=== PATIENT | male | born 1935 | race Caucasian/White ===

== ENCOUNTER 2018-12-16 20:35 | Inpatient (IN) | payer MEDICARE ==
[2018-12-16] MEDS ORDERED: NS 0.9% 1000 ML** 1,000 ML IV.FLUID IV ONE (20:47)
--- NOTE | 2018-12-16 20:49 | ED ---
Sepsis HPI - HPI Summary HPI Summary: 83 yo male presents, accompanied by and son, with 2-3 days of progressive weakness and fatigue. provides the majority of the history. She tells me that pt had a nuclear stress test on 12/13 and felt fine with this. On 12/14 he seemed more tired than usual and slept a lot. Since that time has seemed more confused, fatigued, and has a decreased appetite. Last thing to eat was about 1 hour ago and was a half bowl of soup. states that pt seems "slower" and is "shuffling" when he walks. Glucose this morning was 130s per . Pt denies any pain, headache, dizziness, SOB, chest pain, abdominal pain, n/v/d/c, dysuria , back pain, numbness, tingling. - History of Current Complaint Chief Complaint: EDWeakness Stated Complaint: WEAKNESS CONFUSED Hx Obtained From: Patient, Family/Farrowing Worker Current Severity: None Pain Intensity: 0 - Allergy/Home Medications Allergies/Adverse Reactions: Allergies Allergy/AdvReac Type Severity Reaction Status Date / Time primidone Allergy Unknown Verified 12/16/18 21:25 Reaction Details Home Medications: Home Medications Aspirin [Aspirin Childrens 81 MG] 81 mg PO DAILY 12/16/18 [History Confirmed 11/24] Carvedilol 1 tab PO BID 12/16/18 [History Confirmed 12/16/18] Furosemide 20 mg PO DAILY 12/16/18 [History Confirmed 12/16/18] Toujeo Solostar Pen (NF) 15 units SUBCUT QAM 12/16/18 [History Confirmed ] Fluticasone-Salmeterol 250-50* [Advair Diskus 250-50*] 1 puff INH DAILY [History Confirmed 12/17/18] buPROPion TAB* [Wellbutrin TAB*] 1 tab PO BID 12/17/18 [History Confirmed ] PMH/Surg Hx/FS Hx/Imm Hx Endocrine/Hematology History: Reports: Hx Diabetes Cardiovascular History: Reports: Hx Angina, Hx Hypertension Respiratory History: Reports: Hx Chronic Obstructive Pulmonary Disease (COPD) GI History: Reports: Hx Gastroesophageal Reflux Disease Denies: Hx Gastrointestinal Bleed, Hx Jaundice, Hx Obstructive Bowel History: Reports: Hx Kidney Infection Neurological History: Denies: Hx CVA, Hx Seizures, Hx Transient Ischemic Attacks (TIA) - Surgical History Surgical History: Yes Surgery Procedure, Year, and Place: APPENDECTOMY "YEARS AGO" PER PT Hx Anesthesia Reactions: No Infectious Disease History: No Infectious Disease History: Denies: Traveled Outside the [place] in Last 30 Days - Family History Known Family History: Positive: Unknown - Social History Occupation: Retired Lives: With Family Substance Use Type: Reports: None Smoking Status (MU): Former Smoker Review of Systems Positive: Fatigue, Other - Decreased appetite Eyes: Negative ENT: Negative Cardiovascular: Negative Respiratory: Negative Gastrointestinal: Negative Genitourinary: Negative Musculoskeletal: Negative Skin: Negative Neurological: Negative Psychological: Normal All Other Systems Reviewed And Are Negative: No Physical Exam - Summary Physical Exam Summary: GENERAL: NAD. SKIN: No rashes, sores, ulcers, masses, lesions. HEENT: Head: AT/NC. Eyes: PERRLA. EOM intact. Conjunctiva clear without inflammation or discharge. Ears: Hearing grossly normal. TMs intact, no bulging, erythema, or edema. Nose: Nasal mucosa pink and moist. NTTP maxillary and frontal sinus. Throat: Posterior oropharynx without exudates, erythema, or tonsillar enlargement. Uvula midline. NECK: Supple. Nontender. FROM CHEST: CTAB. No wheezing. No accessory muscle use. Breathing comfortably and in no distress. CV: RRR. Pulses intact. Brisk cap refill. ABDOMEN: Soft. NTTP. Bowel sounds present MSK: FROM in B/L UEs and LEs with symmetric strength. NEURO: A&Ox3. 3 word recall, remote, recent memory, ability to follow 2-step directions, and attention intact. CN: II: Peripheral esquivel intact. Vision normal. III, IV, : EOMI. No nystagmus. PERRLA. V: Sensations intact and symmetric. Opens mouth and clenches teeth. VII: No facial asymmetry. Forehead wrinkles. Grins, shuts eyes, frowns, puffs cheeks. VIII: Hearing intact to finger rub. IX, X: Swallows and coughs. Uvula midline. XI: Shrugs shoulders. Turns head against resistance. XII: No tongue deviation [id number]-gb-[id number] are intact. Normal speech. No facial drooping. PSYCH: Age appropriate behavior. GCS 15 Triage Information Reviewed: Yes Vital Signs On Initial Exam: Initial Vitals Temp Pulse Resp BP Pulse Ox 101 F 110 16 120/87 92 12/16/18 20:41 12/16/18 20:41 12/16/18 20:41 12/16/18 20:41 12/16/18 20:41 Vital Signs Reviewed: Yes Procedures - Sedation Patient Received Moderate/Deep Sedation with Procedure: No Diagnostics - Vital Signs Vital Signs Temp Pulse Resp BP Pulse Ox 12/16/18 20:41 101 F 110 16 120/87 92 - Laboratory Lab Results: Laboratory Tests 12/16/18 12/16/18 12/16/18 20:53 21:10 21:10 WBC 11.2 H RBC 4.72 Hgb 13.4 L Hct 41 L MCV 86 MCH 28 MCHC 33 RDW 14 Plt Count 236 MPV 9.7 Neut % (Auto) 84.5 Lymph % (Auto) 4.6 Schleicher % (Auto) 10.2 Eos % (Auto) 0.4 Baso % (Auto) 0.3 Absolute Neuts (auto) 9.5 H Absolute Lymphs (auto) 0.5 L Absolute Monos (auto) 1.1 H Absolute Eos (auto) 0.0 Absolute Basos (auto) 0.0 Absolute Nucleated RBC 0.0 Nucleated RBC % 0.0 INR (Anticoag Therapy) 1.09 APTT 29.8 Sodium Potassium Chloride Carbon Dioxide Anion Gap BUN Creatinine Est GFR ( Amer) Est GFR (Non-Af Amer) BUN/Creatinine Ratio Glucose POC Glucose (mg/dL) 296 H Lactic Acid Calcium Total Bilirubin AST ALT Alkaline Phosphatase Troponin I C-Reactive Protein B-Natriuretic Peptide Total Protein Albumin Globulin Albumin/Globulin Ratio Influenza A (Rapid) Influenza B (Rapid) 12/16/18 12/16/18 12/16/18 21:10 21:10 21:10 WBC RBC Hgb Hct MCV MCH MCHC RDW Plt Count MPV Neut % (Auto) Lymph % (Auto) Schleicher % (Auto) Eos % (Auto) Baso % (Auto) Absolute Neuts (auto) Absolute Lymphs (auto) Absolute Monos (auto) Absolute Eos (auto) Absolute Basos (auto) Absolute Nucleated RBC Nucleated RBC % INR (Anticoag Therapy) APTT Sodium 131 L Potassium 4.6 Chloride 96 L Carbon Dioxide 27 Anion Gap 8 BUN 21 Creatinine 1.49 H Est GFR ( Amer) 54.2 Est GFR (Non-Af Amer) 44.8 BUN/Creatinine Ratio 14.1 Glucose 260 H POC Glucose (mg/dL) Lactic Acid 1.4 Calcium 9.4 Total Bilirubin 0.90 AST 14 ALT 14 Alkaline Phosphatase 81 Troponin I 0.01 C-Reactive Protein 127.19 H B-Natriuretic Peptide 60 Total Protein 7.4 Albumin 3.9 Globulin 3.5 Albumin/Globulin Ratio 1.1 Influenza A (Rapid) Influenza B (Rapid) 12/16/18 21:13 WBC RBC Hgb Hct MCV MCH MCHC RDW Plt Count MPV Neut % (Auto) Lymph % (Auto) Schleicher % (Auto) Eos % (Auto) Baso % (Auto) Absolute Neuts (auto) Absolute Lymphs (auto) Absolute Monos (auto) Absolute Eos (auto) Absolute Basos (auto) Absolute Nucleated RBC Nucleated RBC % INR (Anticoag Therapy) APTT Sodium Potassium Chloride Carbon Dioxide Anion Gap BUN Creatinine Est GFR ( Amer) Est GFR (Non-Af Amer) BUN/Creatinine Ratio Glucose POC Glucose (mg/dL) Lactic Acid Calcium Total Bilirubin AST ALT Alkaline Phosphatase Troponin I C-Reactive Protein B-Natriuretic Peptide Total Protein Albumin Globulin Albumin/Globulin Ratio Influenza A (Rapid) Negative Influenza B (Rapid) Negative Result Diagrams: 12/17/18 05:54 12/17/18 05:54 Lab Statement: Any lab studies that have been ordered have been reviewed, and results considered in the medical decision making process. - Radiology CXR Radiology Interpretation Completed By: Radiologist Summary of Radiographic Findings: IMPRESSION: Peripheral infiltrate located in the right upper lung. This may represent a pneumonia. No associated pleural effusion. - CT Brain CT Interpretation Completed By: Radiologist Summary of CT Findings: FINDINGS: Limitations: Streak artifact obscuring portions of the posterior fossa and middle cranial fossa. Brain: No acute intracranial hemorrhage. No intracranial mass or mass effect. 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 The brainstem and cerebellum are not remarkable. Ventricles: No ventriculomegaly. Bones/joints : Unremarkable. No acute fracture. Sinuses: Visualized sinuses are unremarkable. No fluid levels. Mastoid air cells: Visualized mastoid air cells are well aerated. Soft tissues: Unremarkable. IMPRESSION: No acute intracranial findings. - EKG 1 EKG Comparison: Other Summary of EKG Findings: Sinus tachycardia 111bpm. RBBB and LAFB. No STEMI as read by Dr. Larios Course/Dx - Course Course Of Treatment: Upon initial eval - pt does meet SIRS criteria for fever and elevated HR. NS bolus was started according to protocol. CXR revealed PNA. Zosyn and Azithromycin started. Labs reveal mild dehydration, elevated glucose, and slight leukocytosis. Given pt's hx of Urosepsis a few years ago, meeting of SIRS criteria today and remaining tachycardic despite fluids, and with PNA on CXR - discussed admission and pt and are agreeable to this. Discussed with Dr. Estrada hospitalist who agrees to admit the pt. Discussed with Dr. Larios and he agrees with plan. - Differential Dx/Clinical Impression Provider Diagnosis: PNA (pneumonia), SIRS (systemic inflammatory response syndrome) Discharge ED - Sign-Out/Discharge Documenting (check all that apply): Patient Departure - Discharge Plan Condition: Stable Disposition: ADMITTED TO [facility] - Billing Disposition and Condition Condition: STABLE Disposition: Admitted to [facility]
[2018-12-16 21:36] LABS: ABS Lymphocytes 0.5 10^3/ul (1.0-4.8); ABS Monocytes 1.1 10^3/ul (0-0.8); ABS Neutrophils 9.5 10^3/ul (1.5-7.7); Eosinophil % 0.4 %; Hematocrit 41 % (42-52); Hemoglobin 13.4 g/dL (14.0-18.0); Lymphocyte % 4.6 %; Mean Corpuscular HGB Conc 33 g/dL (31-36); Mean Corpuscular Hemoglobin 28 pg (27-31); Mean Corpuscular Volume 86 fL (80-94); Mean Platelet Volume 9.7 fL (7.4-10.4); Platelet Count 236 10^3/uL (150-450); Red Blood Count 4.72 10^6 /uL (4.18-5.48); Red Cell Distribution Width 14 % (10-15); White Blood Count 11.2 10^3/uL (3.5-10.8)
[2018-12-16 21:37] LABS: Influenza A Molecular NEGATIVE (Negative); Influenza B Molecular NEGATIVE (Negative)
[2018-12-16] MEDS ORDERED: Piperacillin/Tazobac ADVAN(*) 3.375 GM in NS 0.9% 100 ML* 100 ML IVPB ONE (21:38)
[2018-12-16 21:48] LABS: Albumin 3.9 g/dL (3.2-5.2); Albumin/Globulin Ratio 1.1 (1-3); BUN/Creatinine Ratio 14.1 (8-20); C Reactive Protein 127.19 mg/L (<8.01); Calcium 9.4 mg/dL (8.6-10.3); EGFR African American 54.2 (>60); EGFR Non-African American 44.8 (>60); Globulin 3.5 g/dL (2-4); Potassium 4.6 mmol/L (3.5-5.0); Total Bilirubin 0.9 mg/dL (0.2-1.0); Total Protein 7.4 g/dL (6.4-8.9)
[2018-12-16 21:50] LABS: Troponin I 0.01 ng/mL (<0.04)
[2018-12-16 21:52] LABS: Activated Partial Thrombo Time 29.8 seconds (26.0-38.0); INR 1.09 (0.82-1.09)
[2018-12-16] MEDS ORDERED: Azithromycin 500 mg/250 ml NS 500 MG/250 ML BAG IVPB ONE (22:12)
[2018-12-16 23:46] LABS: Urine Appearance Clear; Urine Bacteria 1+ (Absent); Urine Bilirubin Negative (Negative); Urine Blood 1+ (Negative); Urine Color Yellow; Urine Glucose 1+(50 mg/dL) (Negative); Urine Ketones Negative (Negative); Urine Nitrite Negative (Negative); Urine Protein 3+(>=500 mg/dL) (Negative); Urine Red Blood Cell 2+(6-10/hpf) (Absent); Urine Specific Gravity 1.016 (1.010-1.030); Urine Urobilinogen Negative (Negative); Urine White Blood Cell Trace(0-5/hpf) (Absent)
[2018-12-17] MEDS ORDERED: Dextrose 50% VIAL 50 ml IV PUSH PRN (00:41)
[2018-12-17] MEDS ORDERED: Zosyn per Pharmacy* NOTE FOLLOW UP SCH (01:00)
[2018-12-17] MEDS ORDERED: hydrALAZINE IV* 20 MG/ML VIAL IV SLOW PU PRN (01:03)
[2018-12-17] MEDS ORDERED: Albuterol/Ipratropium NEB.SOL* Albuterol 2.5 MG/Ipratropium 0.5 MG 3 ML INH PRN (01:05)
--- NOTE | 2018-12-17 03:04 | HP ---
HISTORY AND PHYSICAL: DATE OF ADMISSION: 12/17/18 ADMITTING PROVIDER: Kem Estrada MD. PRIMARY CARE PROVIDER: None currently. Formerly, Dr. Sosa and then Dr. Dunn. He is currently searching for a new provider. OUTPATIENT GREASE WORKER: Dr. Adrian Cool. CHIEF COMPLAINT: Fatigue, weakness, decreased appetite, cough. HISTORY OF PRESENT ILLNESS: Omar Looney is an 83-year-old male with past medical history of COPD, CHF, hypertension, and insulin-dependent diabetes mellitus type 2. For the last several weeks, he has not been quite himself with reduced appetite, though they say his weight has been stable. For the last 6 months, he has walked less than he usually did. He just had a stress test on up in [place] (2 days prior to admission). For the last 2 days, he has been weak and had even further reduction in appetite. He has been coughing with occasionally yellow production that mostly is staying in the chest. Today , he was more confused. He presented to [facility] Emergency Room and was found to be febrile to 101. His heart rate was tachycardic to 108. He had a leukocytosis of 11.2 and a chest x-ray concerning for right upper lobe infiltrate. He was started on Zosyn, a sepsis fluid bolus, and was referred to the hospitalist service for admission. CRP was 127. Blood glucose had been more elevated in the last few days and was 296 here. He denies any orthopnea or chest pain. He recently has been prescribed some new Advair about 2 to 3 weeks ago. PAST MEDICAL HISTORY: 1. CHF (unknown type or severity). 2. COPD. 3. Hypertension. 4. Insulin-dependent diabetes mellitus. 5. Hyperlipidemia. MEDICATIONS: Include: 1. Advair daily. 2. Wellbutrin 75 mg 1 tab p.o. b.i.d. 3. Metformin 850 mg p.o. b.i.d. 4. Toujeo 15 units subcutaneous q.a.m. 5. Aspirin 81 mg daily. 6. Lasix 20 mg p.o. daily. 7. Carvedilol 6.25 mg p.o. b.i.d. 8. Omeprazole 20 mg p.o. at bedtime. 9. Atorvastatin 40 mg daily. ALLERGIES: PRIMIDONE, unknown. SOCIAL HISTORY: The patient is a former smoker of 40-plus years, quit more than 10 years ago, 1 pack per day. No alcohol use. Retired maintenance planner. Medical surrogate is his , Cheryl Looney. He desires to be a full code. FAMILY HISTORY: His mother of a heart attack at age 67. Father of Alzheimer's at age 90. He was in a family of 6 other siblings, most of whom very early in their younger childhood, but he had 2 adult age sisters who of COPD and a CVA respectively. REVIEW OF SYSTEMS: A complete 14-point review of systems is negative, except as per HPI. He denies any headaches, neck stiffness, abdominal pain, diarrhea, or constipation. He is usually instructed to take his blood pressures in the right arm only. PHYSICAL EXAMINATION GENERAL APPEARANCE: In no acute distress. VITAL SIGNS: Temperature 101, heart rate 110, satting 92% on room air, respiratory rate between 16 and 35, blood pressure 120/87. HEENT: Normocephalic, atraumatic. Pupils equal, round, and reactive to light. Extraocular motions are intact. No scleral icterus. LUNGS: With some rhonchi bilaterally. No wheezing or rales. CARDIOVASCULAR: Regular rate and rhythm. No murmurs, rubs, or gallops. ABDOMEN: Soft, nontender, nondistended. EXTREMITIES: Warm and well perfused. No peripheral edema. NEURO: Cranial nerves II through XII grossly intact. Moving all extremities. DIAGNOSTIC STUDIES/LAB DATA: Labs: White count 11.2, hemoglobin 13.4, hematocrit 41, platelets 236. INR 1.09. Sodium 131, potassium 4.6, chloride 96 , carbon dioxide 27, creatinine 1.49, glucose 260. Lactic acid 1.4. Total bili 0.9. AST 14, ALT 14, alk phos 81. Troponin 0.01, CRP 127, BNP 60. Albumin 3.9. Influenza A and B negative. Imaging: CT brain demonstrated no acute intracranial findings. Chest x-ray, impression: Peripheral infiltrate located in the right upper lung. This may represent a pneumonia, no associated pleural effusion. His EKG demonstrated sinus tachycardia with right bundle-branch and left anterior fascicular blocks. No ST elevations or depressions. ASSESSMENT AND PLAN: Omar Looney is an 83-year-old male with past medical history of congestive heart failure (unknown type or severity), chronic obstructive pulmonary disease, hypertension, and insulin-dependent diabetes mellitus presenting with: 1. A few days of weakness, cough, confusion, reduced appetite and now with fever, tachycardia, and sepsis secondary to right upper lobe pneumonia. He has been started on Zosyn and azithromycin and given a sepsis fluid bolus. We will continue the Zosyn. We will get a MRSA nares sputum culture. Follow up the blood cultures. Get Streptococcus pneumoniae and Legionella urine antigen tests. Order a urinalysis. 2. He is actually hypertensive here, especially when checking his right forearm. Continue his Coreg 6.25 mg p.o. b.i.d., hydralazine p.r.n., Lipitor, and aspirin. 3. COPD (not in acute exacerbation): Continue his home Advair. Add on DuoNebs p.r.n. 4. I will put him on DVT prophylaxis with heparin 5000 t.i.d. 5. Continue the heart-healthy diet. He will get physical therapy. He has been admitted to inpatient status for sepsis. 6. His medical surrogate is his , Cheryl Looney. He is a full code. [id number]/CPS #: [id number] MTDD
[2018-12-17] MEDS: Piperacillin/Tazobac ADVAN(*) 3.375 GM in NS 0.9% 100 ML* 100 ML IVPB SCH ×2 (03:16→10:42)
[2018-12-17 06:05] LABS: ABS Eosinophils 0.1 10^3/ul (0-0.6); ABS Lymphocytes 0.9 10^3/ul (1.0-4.8); ABS Monocytes 1.2 10^3/ul (0-0.8); ABS Neutrophils 5.4 10^3/ul (1.5-7.7); Hematocrit 33 % (42-52); Mean Corpuscular HGB Conc 34 g/dL (31-36); Mean Corpuscular Hemoglobin 29 pg (27-31); Mean Corpuscular Volume 85 fL (80-94); Nucleated Red Blood Cells % 0.1; Platelet Count 185 10^3/uL (150-450); Red Blood Count 3.85 10^6 /uL (4.18-5.48); Red Cell Distribution Width 13 % (10-15); White Blood Count 7.5 10^3/uL (3.5-10.8)
[2018-12-17] MEDS: Heparin VIAL(*) 5000 UNITS/ML VIAL (FIVE THOUSAND) SUBCUT SCH ×3 (06:11→21:01)
[2018-12-17 06:35] LABS: BUN/Creatinine Ratio 12.9 (8-20); Calcium 8.2 mg/dL (8.6-10.3); EGFR African American 58.3 (>60); EGFR Non-African American 48.2 (>60); Potassium 4.2 mmol/L (3.5-5.0)
[2018-12-17] MEDS: Mometasone/Formoter 200/5 MDI INH SCH ×2 (08:03→20:03)
[2018-12-17] MEDS: Insulin LISPRO* 1 UNITS UNIT SUBCUT SCH ×4 (09:20→21:02)
[2018-12-17] MEDS: Insulin GLARGINE(*) 1 UNITS UNIT SUBCUT SCH (09:21)
[2018-12-17] MEDS: Aspirin 81 mg CHEW TAB* 81 MG TAB.CHEW PO SCH (09:21)
[2018-12-17] MEDS: Carvedilol TAB* 6.25 MG PO SCH ×2 (09:21→21:01)
[2018-12-17] MEDS: buPROPion TAB* 75 MG PO SCH ×2 (09:22→21:01)
[2018-12-17] MEDS ORDERED: Polyethylene Glycol 3350* 17 GM PACKET PO PRN (14:26)
[2018-12-17] MEDS: Azithromycin TAB* 250 MG PO SCH (15:07)
--- NOTE | 2018-12-17 15:49 | PN ---
Subjective Date of Service: 12/17/18 Interval History: HD 2 on 12/17 83 y/o M wiht h/o COPD,HTN, Insulin dependent DM2 presented with sub acute cough associated with SOB, confusion, loss of appetite and fatigue. Found to have sepsis with pneumonia. Complains of cough. Feeling better. Objective Active Medications: Albuterol/Ipratropium (Duoneb (Albuterol 2.5 Mg/Ipratropium 0.5 Mg)) 1 neb INH Q6H PRN PRN Reason: SOB/WHEEZING Aspirin (Aspirin 81 Mg Chew Tab*) 81 mg PO DAILY [facility] Last Admin: 12/17/18 09:21 Dose: 81 mg Atorvastatin Calcium (Lipitor*) 40 mg PO 1700 [facility] Azithromycin (Zithromax Tab*) 250 mg PO 1600 [facility] Last Admin: 12/17/18 15:07 Dose: 250 mg Bupropion HCl (Wellbutrin Tab*) 75 mg PO BID [facility] Last Admin: 12/17/18 09:22 Dose: 75 mg Carvedilol (Coreg Tab*) 6.25 mg PO BID [facility] Last Admin: 12/17/18 09:21 Dose: 6.25 mg Dextrose (Dextrose 50% Vial 50 Ml*) 25 ml IV PUSH .FOR FS < 60 - SS PRN PRN Reason: FS < 60 Heparin Sodium (Porcine) (Heparin Vial(*)) 5,000 units SUBCUT Q8HR [facility] Last Admin: 12/17/18 15:07 Dose: 5,000 units Hydralazine HCl (Apresoline Iv*) 20 mg IV SLOW PU Q2H PRN PRN Reason: HEART RATE/PULSE GREATER THAN: Ceftriaxone Sodium 1 gm/ (Sodium Chloride) 50 mls @ 100 mls/hr IVPB Q24H [facility] Insulin Glargine (Lantus(*)) 15 units SUBCUT Q24H [facility] Last Admin: 12/17/18 09:21 Dose: 15 units Insulin Human Lispro (Humalog*) 0 units SUBCUT ACHS [facility]; Protocol Last Admin: 12/17/18 13:12 Dose: 2 units Mometasone Furoate/Formoterol Fumar (Dulera 200/5 Mdi*) 2 puff INH BID [facility] Last Admin: 12/17/18 08:03 Dose: 2 puff Pantoprazole Sodium (Protonix Tab*) 40 mg PO BEDTIME LOPEZ Polyethylene Glycol/Electrolytes (Miralax*) 17 gm PO DAILY PRN PRN Reason: CONSTIPATION Last Admin: 12/17/18 15:07 Dose: 17 gm Vital Signs - 8 hr 12/17/18 12/17/18 12/17/18 08:00 08:06 08:16 Temperature 99.9 F Pulse Rate 91 86 Respiratory 17 20 14 Rate Blood Pressure 98/66 (mmHg) O2 Sat by Pulse 97 98 Oximetry 12/17/18 11:20 Temperature 98.5 F Pulse Rate 76 Respiratory 18 Rate Blood Pressure 139/70 (mmHg) O2 Sat by Pulse 98 Oximetry Oxygen Devices in Use Now: Nasal Cannula Exam: Patient is sitting on abed with no acute distress; wearing nasal canula HEENT- Normocephalic and atraumatic Lungs- Clear with no adde dsounds Heart- S1/S2 heard with no murmur ABdomen- soft, nondistended and nontender. Normal BS heard Extremities- Normal Neuro- Alert, oriented and conscious. Moving all four extremities Result Diagrams: 12/17/18 05:54 12/17/18 05:54 Additional Lab and Data: Laboratory Tests 12/16/18 12/16/18 12/16/18 20:53 21:10 21:10 WBC 11.2 H RBC 4.72 Hgb 13.4 L Hct 41 L MCV 86 MCH 28 MCHC 33 RDW 14 Plt Count 236 MPV 9.7 Neut % (Auto) 84.5 Lymph % (Auto) 4.6 Hartley % (Auto) 10.2 Eos % (Auto) 0.4 Baso % (Auto) 0.3 Absolute Neuts (auto) 9.5 H Absolute Lymphs (auto) 0.5 L Absolute Monos (auto) 1.1 H Absolute Eos (auto) 0.0 Absolute Basos (auto) 0.0 Absolute Nucleated RBC 0.0 Nucleated RBC % 0.0 INR (Anticoag Therapy) 1.09 APTT 29.8 Sodium Potassium Chloride Carbon Dioxide Anion Gap BUN Creatinine Est GFR ( Amer) Est GFR (Non-Af Amer) BUN/Creatinine Ratio Glucose POC Glucose (mg/dL) 296 H Lactic Acid Calcium Total Bilirubin AST ALT Alkaline Phosphatase Troponin I C-Reactive Protein B-Natriuretic Peptide Total Protein Albumin Globulin Albumin/Globulin Ratio Influenza A (Rapid) Influenza B (Rapid) 1112/16/18 12/16/18 21:10 21:10 21:10 WBC RBC Hgb Hct MCV MCH MCHC RDW Plt Count MPV Neut % (Auto) Lymph % (Auto) Hartley % (Auto) Eos % (Auto) Baso % (Auto) Absolute Neuts (auto) Absolute Lymphs (auto) Absolute Monos (auto) Absolute Eos (auto) Absolute Basos (auto) Absolute Nucleated RBC Nucleated RBC % INR (Anticoag Therapy) APTT Sodium 131 L Potassium 4.6 Chloride 96 L Carbon Dioxide 27 Anion Gap 8 BUN 21 Creatinine 1.49 H Est GFR ( Amer) 54.2 Est GFR (Non-Af Amer) 44.8 BUN/Creatinine Ratio 14.1 Glucose 260 H POC Glucose (mg/dL) Lactic Acid 1.4 Calcium 9.4 Total Bilirubin 0.90 AST 14 ALT 14 Alkaline Phosphatase 81 Troponin I 0.01 C-Reactive Protein 127.19 H B-Natriuretic Peptide 60 Total Protein 7.4 Albumin 3.9 Globulin 3.5 Albumin/Globulin Ratio 1.1 Influenza A (Rapid) Influenza B (Rapid) 12/16/18 21:13 WBC RBC Hgb Hct MCV MCH MCHC RDW Plt Count MPV Neut % (Auto) Lymph % (Auto) Hartley % (Auto) Eos % (Auto) Baso % (Auto) Absolute Neuts (auto) Absolute Lymphs (auto) Absolute Monos (auto) Absolute Eos (auto) Absolute Basos (auto) Absolute Nucleated RBC Nucleated RBC % INR (Anticoag Therapy) APTT Sodium Potassium Chloride Carbon Dioxide Anion Gap BUN Creatinine Est GFR ( Amer) Est GFR (Non-Af Amer) BUN/Creatinine Ratio Glucose POC Glucose (mg/dL) Lactic Acid Calcium Total Bilirubin AST ALT Alkaline Phosphatase Troponin I C-Reactive Protein B-Natriuretic Peptide Total Protein Albumin Globulin Albumin/Globulin Ratio Influenza A (Rapid) Negative Influenza B (Rapid) Negative Assess/Plan/Problems-Billing Assessment: 83 y/o M wiht h/o Insulin dependent DM, HTN, COPD presented with subacute cough associated with SOB, fatigue, confusion and loss of appetite FOund to be in sepsis with suspected pneumonia and has microscopic hematuria. On ceftriaxone and azithro - Patient Problems (1) Sepsis Current Visit: Yes Status: Acute Comment: -fever, tachycardia and tachypnea -received IVF -suspected source- lung- infiltrate on right middle lobe -urine negative for legionella and strept -On ceftriaxone and azithro(day 2 on 12/17) (2) Hypertension Current Visit: Yes Status: Acute Code(s): I10 - ESSENTIAL (PRIMARY) HYPERTENSION SNOMED Code(s): 83500013 Comment: -BP in the range of 150-178 -improving -Continue coreg adn hydralizine p.r.n (3) Hematuria Current Visit: Yes Status: Acute Code(s): R31.9 - HEMATURIA, UNSPECIFIED SNOMED Code(s): 93046013 Comment: -microscopic -no burning, increased frequency and change in color of urine -could be nephrolithiasis, interstitial cystitis, bladder tumor -We will send US of bladder and kidney -we will follow (4) Diabetes mellitus Current Visit: Yes Status: Acute Code(s): E11.9 - TYPE 2 DIABETES MELLITUS WITHOUT COMPLICATIONS SNOMED Code(s): 38785231 Comment: - On insulin glargine and sldiing scale - Hba1c is 7.8- goal is 7-8 in elderly with comorbid condition (5) COPD (chronic obstructive pulmonary disease) Current Visit: Yes Status: Acute Code(s): J44.9 - CHRONIC OBSTRUCTIVE PULMONARY DISEASE, UNSPECIFIED SNOMED Code(s): 35480521 Comment: -No evidence of acute exacerbation -Continue dulera and duoneb (6) DVT prophylaxis Current Visit: Yes Status: Acute Code(s): Z29.9 - ENCOUNTER FOR PROPHYLACTIC MEASURES, UNSPECIFIED SNOMED Code(s): 457005726 Comment: - On heparin (7) Full code status Current Visit: Yes Status: Acute Code(s): Z78.9 - OTHER SPECIFIED HEALTH STATUS SNOMED Code(s): 764244941 Status and Disposition: Inpatient Attending: Deb Franco Attestation Documenting Resident: Dwain Santos Supervising Physician: Deb Franco Attending/Supervising Physician Comment: Attending Assessment and Plan 83 PMH HF(?) COPD HTN IDDM depression who presented with sepsis thought to be 2/ 2 to pulm source. He does have microscopic hematuria as well, and only a mild infiltrate on CXR. Consider other source such as UTI, or a non infectious source for fever if pt not improving. Anticipate 2-3 days of hospitlization, will attempt to get cardiac records. Attestation: This service has been performed in part by a resident under the direction of a teaching physician.I, Deb Franco, performed the service, or was physically present during the critical, or ramon portions of the service, furnished by the resident. I participated in the management of the patient.
[2018-12-17] MEDS: cefTRIAXone(*) 1 GM in NS 0.9% 50 ML* 50 ML IVPB SCH (17:50)
[2018-12-17] MEDS: Atorvastatin* 40 MG TAB PO SCH (17:51)
[2018-12-17] MEDS: Pantoprazole TAB * 40 MG TAB PO SCH (21:01)
[2018-12-18] MEDS: Heparin VIAL(*) 5000 UNITS/ML VIAL (FIVE THOUSAND) SUBCUT SCH (06:11)
--- NOTE | 2018-12-18 06:50 | PN ---
Subjective Date of Service: 12/18/18 Interval History: HD 3 on 12/18 83 y/o M wiht h/o COPD,HTN, Insulin dependent DM2 presented with sub acute cough associated with SOB, confusion, loss of appetite and fatigue. Found to have sepsis with pneumonia. and microscopic hematuria Overnight- no acute events VS stable- requiring 1-2 L of oxygen Patient states that he is improving. Has cough-whitish color No fever, chest pain Objective Active Medications: Albuterol/Ipratropium (Duoneb (Albuterol 2.5 Mg/Ipratropium 0.5 Mg)) 1 neb INH Q6H PRN PRN Reason: SOB/WHEEZING Aspirin (Aspirin 81 Mg Chew Tab*) 81 mg PO DAILY [facility] Last Admin: 12/17/18 09:21 Dose: 81 mg Atorvastatin Calcium (Lipitor*) 40 mg PO 1700 [facility] Last Admin: 12/17/18 17:51 Dose: 40 mg Azithromycin (Zithromax Tab*) 250 mg PO 1600 [facility] Last Admin: 12/17/18 15:07 Dose: 250 mg Bupropion HCl (Wellbutrin Tab*) 75 mg PO BID [facility] Last Admin: 12/17/18 21:01 Dose: 75 mg Carvedilol (Coreg Tab*) 6.25 mg PO BID [facility] Last Admin: 12/17/18 21:01 Dose: 6.25 mg Dextrose (Dextrose 50% Vial 50 Ml*) 25 ml IV PUSH .FOR FS < 60 - SS PRN PRN Reason: FS < 60 Heparin Sodium (Porcine) (Heparin Vial(*)) 5,000 units SUBCUT Q8HR [facility] Last Admin: 12/18/18 06:11 Dose: 5,000 units Hydralazine HCl (Apresoline Iv*) 20 mg IV SLOW PU Q2H PRN PRN Reason: HEART RATE/PULSE GREATER THAN: Ceftriaxone Sodium 1 gm/ (Sodium Chloride) 50 mls @ 100 mls/hr IVPB Q24H [facility] Last Admin: 12/17/18 17:50 Dose: 100 mls/hr Insulin Glargine (Lantus(*)) 15 units SUBCUT Q24H [facility] Last Admin: 12/17/18 09:21 Dose: 15 units Insulin Human Lispro (Humalog*) 0 units SUBCUT [facility]; Protocol Last Admin: 12/17/18 21:02 Dose: 1 units Mometasone Furoate/Formoterol Fumar (Dulera 200/5 Mdi*) 2 puff INH BID [facility] Last Admin: 12/17/18 20:03 Dose: 2 puff Pantoprazole Sodium (Protonix Tab*) 40 mg PO BEDTIME [facility] Last Admin: 12/17/18 21:01 Dose: 40 mg Polyethylene Glycol/Electrolytes (Miralax*) 17 gm PO DAILY PRN PRN Reason: CONSTIPATION Last Admin: 12/17/18 15:07 Dose: 17 gm Vital Signs - 8 hr 12/17/18 12/18/18 22:54 03:10 Temperature 100.0 F 99.3 F Pulse Rate 85 87 Respiratory 18 19 Rate Blood Pressure 139/73 147/67 (mmHg) O2 Sat by Pulse 99 92 Oximetry Oxygen Devices in Use Now: Nasal Cannula Exam: Patient is sitting on abed with no acute distress HEENT- Normocephalic and atraumatic Lungs- Clear with bilateral crackles. Heart- S1/S2 heard with no murmur ABdomen- soft, nondistended and nontender. Normal BS heard Extremities- Normal Neuro- Alert, oriented and conscious. Moving all four extremities Result Diagrams: 12/18/18 08:35 12/18/18 08:35 Additional Lab and Data: Laboratory Tests 12/16/18 12/16/18 12/16/18 20:53 21:10 21:10 WBC 11.2 H RBC 4.72 Hgb 13.4 L Hct 41 L MCV 86 MCH 28 MCHC 33 RDW 14 Plt Count 236 MPV 9.7 Neut % (Auto) 84.5 Lymph % (Auto) 4.6 [place] % (Auto) 10.2 Eos % (Auto) 0.4 Baso % (Auto) 0.3 Absolute Neuts (auto) 9.5 H Absolute Lymphs (auto) 0.5 L Absolute Monos (auto) 1.1 H Absolute Eos (auto) 0.0 Absolute Basos (auto) 0.0 Absolute Nucleated RBC 0.0 Nucleated RBC % 0.0 INR (Anticoag Therapy) 1.09 APTT 29.8 Sodium Potassium Chloride Carbon Dioxide Anion Gap BUN Creatinine Est GFR ( Amer) Est GFR (Non-Af Amer) BUN/Creatinine Ratio Glucose POC Glucose (mg/dL) 296 H Lactic Acid Calcium Total Bilirubin AST ALT Alkaline Phosphatase Troponin I C-Reactive Protein B-Natriuretic Peptide Total Protein Albumin Globulin Albumin/Globulin Ratio Influenza A (Rapid) Influenza B (Rapid) 12/16/18 12/16/18 12/16/18 21:10 21:10 21:10 WBC RBC Hgb Hct MCV MCH MCHC RDW Plt Count MPV Neut % (Auto) Lymph % (Auto) [place] % (Auto) Eos % (Auto) Baso % (Auto) Absolute Neuts (auto) Absolute Lymphs (auto) Absolute Monos (auto) Absolute Eos (auto) Absolute Basos (auto) Absolute Nucleated RBC Nucleated RBC % INR (Anticoag Therapy) APTT Sodium 131 L Potassium 4.6 Chloride 96 L Carbon Dioxide 27 Anion Gap 8 BUN 21 Creatinine 1.49 H Est GFR ( Amer) 54.2 Est GFR (Non-Af Amer) 44.8 BUN/Creatinine Ratio 14.1 Glucose 260 H POC Glucose (mg/dL) Lactic Acid 1.4 Calcium 9.4 Total Bilirubin 0.90 AST 14 ALT 14 Alkaline Phosphatase 81 Troponin I 0.01 C-Reactive Protein 127.19 H B-Natriuretic Peptide 60 Total Protein 7.4 Albumin 3.9 Globulin 3.5 Albumin/Globulin Ratio 1.1 Influenza A (Rapid) Influenza B (Rapid) 12/16/18 21:13 WBC RBC Hgb Hct MCV MCH MCHC RDW Plt Count MPV Neut % (Auto) Lymph % (Auto) [place] % (Auto) Eos % (Auto) Baso % (Auto) Absolute Neuts (auto) Absolute Lymphs (auto) Absolute Monos (auto) Absolute Eos (auto) Absolute Basos (auto) Absolute Nucleated RBC Nucleated RBC % INR (Anticoag Therapy) APTT Sodium Potassium Chloride Carbon Dioxide Anion Gap BUN Creatinine Est GFR ( Amer) Est GFR (Non-Af Amer) BUN/Creatinine Ratio Glucose POC Glucose (mg/dL) Lactic Acid Calcium Total Bilirubin AST ALT Alkaline Phosphatase Troponin I C-Reactive Protein B-Natriuretic Peptide Total Protein Albumin Globulin Albumin/Globulin Ratio Influenza A (Rapid) Negative Influenza B (Rapid) Negative Assess/Plan/Problems-Billing Assessment: 83 y/o M wiht h/o Insulin dependent DM, HTN, COPD presented with subacute cough associated with SOB, fatigue, confusion and loss of appetite FOund to be in sepsis with suspected pneumonia and has microscopic hematuria. On ceftriaxone and azithro - Patient Problems (1) Sepsis Current Visit: Yes Status: Acute Comment: -resolved -source- lung- infiltrate on right middle lobe -urine negative for legionella and strept -On ceftriaxone and azithro(day 3 on 12/18) -on incentive spirometry -saturation normal at room air (2) Hypertension Current Visit: Yes Status: Acute Code(s): I10 - ESSENTIAL (PRIMARY) HYPERTENSION SNOMED Code(s): 57418064 Comment: -well-controlled -improving -Continue coreg adn hydralizine p.r.n (3) Hematuria Current Visit: Yes Status: Acute Code(s): R31.9 - HEMATURIA, UNSPECIFIED SNOMED Code(s): 12915312 Comment: -microscopic -no burning, increased frequency and change in color of urine -could be nephrolithiasis, interstitial cystitis, bladder tumor -US negative for stones and bladder pathology; showed enlarged prostrate though -ESR slightly high -can follow up as an outpatient (4) Diabetes mellitus Current Visit: Yes Status: Acute Code(s): E11.9 - TYPE 2 DIABETES MELLITUS WITHOUT COMPLICATIONS SNOMED Code(s): 61318126 Comment: - On insulin glargine and sliding scale - Hba1c is 7.8- goal is 7-8 in elderly with comorbid condition (5) COPD (chronic obstructive pulmonary disease) Current Visit: Yes Status: Acute Code(s): J44.9 - CHRONIC OBSTRUCTIVE PULMONARY DISEASE, UNSPECIFIED SNOMED Code(s): 55814848 Comment: -No evidence of acute exacerbation -Continue dulera and duoneb (6) DVT prophylaxis Current Visit: Yes Status: Acute Code(s): Z29.9 - ENCOUNTER FOR PROPHYLACTIC MEASURES, UNSPECIFIED SNOMED Code(s): 481757188 Comment: - On lovenox (7) Full code status Current Visit: Yes Status: Acute Code(s): Z78.9 - OTHER SPECIFIED HEALTH STATUS SNOMED Code(s): 843644435 Status and Disposition: Inpatient probable dc tomorrow Attending: Deb Franco Attestation Documenting Resident: Dwain Santos Supervising Physician: Deb Franco Attending/Supervising Physician Comment: Attending Assessment and Plan: 83 PMH HF(?) COPD HTN IDDM depression who presented with sepsis thought to be 2/ 2 to pulm source, also found to have microscopic hematuria Today improving sig, most likely was pulm source, CAP with sig improvement. Mild hypotension today. Agree with stepwise plan by resident Dispo: May be able to d/c in next 24-48 hours pending clinical improvement. Attestation: This service has been performed in part by a resident under the direction of a teaching physician.I, Deb Franco, performed the service, or was physically present during the critical, or ramon portions of the service, furnished by the resident. I participated in the management of the patient.
[2018-12-18] MEDS: Mometasone/Formoter 200/5 MDI INH SCH ×2 (07:52→19:27)
--- NOTE | 2018-12-18 08:30 | PN ---
<DorisEladio - Last Filed: 12/18/18 14:54> Hospitalist Progress Note Date of Service: 12/18/18 S/IE: Omar Looney is an 83 year-old male with a history of COPD, CHF, HTN, DMII who presented on 12/16/18 with SOB, confusion, loss of appetite and fatigue found to have sepsis with pneumonia and microscopic hematuria. This is hospital day 3. No significant events overnight. No pain. Has not had a BM since admission. He reports that he is feeling much better today and continues to inquire about when he could go home. Sitting in a chair eating a good breakfast. Has been ambulating with assistance. Has been on low flow oxygen at 1.5 LPM. Discussion of possible d/c in next day or two if continued improvement. O: PE: 3 Temp Pulse Resp BP Pulse Ox 99.3 F 88 18 147/67 94 12/18/18 03:10 12/18/18 07:54 12/18/18 07:54 12/18/18 03:10 12/18/18 07:54 General: Comfortably sitting in chair, not in acute distress, AAOx4, pleasantly cooperates with interview and examination. HEENT: Head is normocephalic and atraumatic. Hearing is grossly normal b/l. PERRLA. EOMI. Visual acuity grossly normal b/l. Nares patent. Oral mucosa pink and moist. Good dentition. No JVD. Trachea midline. No lymphadenopathy. Chest: Unlabored breathing with normal symmetric chest motion. Lungs clear to auscultation b/l. Regular heart rhythm. Normal S1/S2. No rubs, click, gallops. Abdomen: Soft, non-tender, non-distended. Extremities: UE and LE distal CMS intact b/l. 5/5 handgrip strength. Recent Labs: 3 12/18/18 12/18/18 12/18/18 08:35 08:35 08:36 WBC 7.4 RBC 4.01 L Hgb 11.4 L Hct 35 L MCV 86 MCH 29 MCHC 33 RDW 13 Plt Count 195 MPV 9.3 Neut % (Auto) 71.9 Lymph % (Auto) 11.5 [place] % (Auto) 12.3 Eos % (Auto) 4.0 Baso % (Auto) 0.3 Absolute Neuts (auto) 5.3 Absolute Lymphs (auto) 0.8 L Absolute Monos (auto) 0.9 H Absolute Eos (auto) 0.3 Absolute Basos (auto) 0.0 Absolute Nucleated RBC 0.0 Nucleated RBC % 0.0 ESR 54 H Sodium 137 Potassium 4.0 Chloride 102 Carbon Dioxide 26 Anion Gap 9 BUN 16 Creatinine 1.33 H Est GFR ( Amer) 61.8 Est GFR (Non-Af Amer) 51.1 BUN/Creatinine Ratio 12.0 Glucose 94 POC Glucose (mg/dL) 109 H Calcium 9.0 3 12/17/18 12/17/18 05:54 05:54 WBC 7.5 RBC 3.85 L Hgb 11.0 L Hct 33 L MCV 85 MCH 29 MCHC 34 RDW 13 Plt Count 185 MPV 9.0 Neut % (Auto) 71.3 Lymph % (Auto) 12.0 [place] % (Auto) 15.3 Eos % (Auto) 1.0 Baso % (Auto) 0.4 Absolute Neuts (auto) 5.4 Absolute Lymphs (auto) 0.9 L Absolute Monos (auto) 1.2 H Absolute Eos (auto) 0.1 Absolute Basos (auto) 0.0 Absolute Nucleated RBC 0.0 Nucleated RBC % 0.1 Sodium 137 Potassium 4.2 Chloride 104 Carbon Dioxide 28 Anion Gap 5 BUN 18 Creatinine 1.40 H Est GFR ( Amer) 58.3 Est GFR (Non-Af Amer) 48.2 BUN/Creatinine Ratio 12.9 Glucose 133 H Calcium 8.2 L Sputum Smear Results (12/18/18): 4+ Epithelial Cells 3+ Neutrophils Mixed Morphotypes, resembling Normal Maria Eugenia Sputum Culture PENDING Aerobic and Anerobic Venous Blood Cultures (12/17/18): No growth Renal and Bladder US (12/17/18): INDICATION: Hematuria. COMPARISON: Comparison is made with a prior CT of the abdomen and pelvis from December 18, 2009 and a prior renal ultrasound from January 21, 2013. TECHNIQUE: Multiple real-time images of the kidneys and urinary bladder were obtained. FINDINGS: The kidneys are normal in size shape and echogenicity. The right kidney measured 11.2 x 5.5 x 5.0 cm and the left kidney measured 10.1 x 5.5 x 5.0 cm. No significant focal renal abnormality or hydronephrosis is seen. The bladder is normal in contour. No intraluminal abnormalities are seen. No bladder wall thickening is noted. There are bilateral ureteral jets present within the urinary bladder. The prostate gland measured 3.7 x 4.0 x 4.2 cm for a total volume of 33 ml. The prevoid volume was 250 ml and a post void residual was 57 ml. IMPRESSION: ENLARGED PROSTATE GLAND, SMALL TO MODERATE POST VOID RESIDUAL. Current Medications: Albuterol/Ipratropium (Duoneb (Albuterol 2.5 Mg/Ipratropium 0.5 Mg)) 1 neb INH Q6H PRN PRN Reason: SOB/WHEEZING Aspirin (Aspirin 81 Mg Chew Tab*) 81 mg PO DAILY [facility] Last Admin: 12/18/18 08:45 Dose: 81 mg Atorvastatin Calcium (Lipitor*) 40 mg PO 1700 [facility] Last Admin: 12/17/18 17:51 Dose: 40 mg Azithromycin (Zithromax Tab*) 250 mg PO 1600 [facility] Last Admin: 12/17/18 15:07 Dose: 250 mg Bupropion HCl (Wellbutrin Tab*) 75 mg PO BID [facility] Last Admin: 12/18/18 08:45 Dose: 75 mg Carvedilol (Coreg Tab*) 6.25 mg PO BID [facility] Last Admin: 12/18/18 08:46 Dose: 6.25 mg Dextrose (Dextrose 50% Vial 50 Ml*) 25 ml IV PUSH .FOR FS < 60 - SS PRN PRN Reason: FS < 60 Enoxaparin Sodium (Lovenox(*)) 40 mg SUBCUT Q24H [facility] Last Admin: 12/18/18 13:13 Dose: 40 mg Hydralazine HCl (Apresoline Iv*) 20 mg IV SLOW PU Q2H PRN PRN Reason: HEART RATE/PULSE GREATER THAN: Ceftriaxone Sodium 1 gm/ (Sodium Chloride) 50 mls @ 100 mls/hr IVPB Q24H [facility] Last Admin: 12/17/18 17:50 Dose: 100 mls/hr Insulin Glargine (Lantus(*)) 15 units SUBCUT Q24H [facility] Last Admin: 12/18/18 08:44 Dose: 15 units Insulin Human Lispro (Humalog*) 0 units SUBCUT [facility]; Protocol Last Admin: 12/18/18 11:46 Dose: 2 units Mometasone Furoate/Formoterol Fumar (Dulera 200/5 Mdi*) 2 puff INH BID [facility] Last Admin: 12/18/18 07:52 Dose: 2 puff Pantoprazole Sodium (Protonix Tab*) 40 mg PO BEDTIME [facility] Last Admin: 12/17/18 21:01 Dose: 40 mg Polyethylene Glycol/Electrolytes (Miralax*) 17 gm PO DAILY [facility] Last Admin: 12/18/18 13:13 Dose: 17 gm Recent Orders: 12/17/18 15:45 obtain records [Records From Another Facility] .ONCE 12/17/18 16:00 Azithromycin TAB* [Zithromax TAB*] 250 mg PO 1600 12/17/18 17:00 Atorvastatin* [Lipitor*] 40 mg PO 1700 12/17/18 18:00 cefTRIAXone(*) [Rocephin(*)] 1 gm Ns 0.9% 50 ml* 50 ml IVPB Q24H 12/17/18 21:00 Pantoprazole TAB * [Protonix TAB*] 40 mg PO BEDTIME 12/17/18 Dinner Heart Healthy Diet Caffeine Okay 12/18/18 12:00 Enoxaparin(*) [Lovenox(*)] 40 mg SUBCUT Q24H 12/18/18 12:10 Incentive Spirometry Education ONCE 12/18/18 13:00 Polyethylene Glycol 3350* [Miralax*] 17 gm PO DAILY 12/19/18 06:00 BMP [Basic Metabolic Panel] [CHEM] DAILY CBC Auto Diff DAILY 12/20/18 06:00 BMP [Basic Metabolic Panel] [CHEM] DAILY CBC Auto Diff DAILY 12/21/18 06:00 BMP [Basic Metabolic Panel] [CHEM] DAILY CBC Auto Diff DAILY 12/22/18 06:00 BMP [Basic Metabolic Panel] [CHEM] DAILY A/I: 83 year-old male with a history of COPD, CHF, HTN, DMII who presented on with SOB, confusion, loss of appetite and fatigue found to have sepsis with pneumonia and microscopic hematuria P: Sepsis / PNA: Presented with fever, tachycardia, tachypnea CXR showed infiltrate on right middle lobe Urine negative for legionella and strept Sputum smear showed 4+ epithelial cells, 3+ neutrophils Venous blood cultures negative Received IVF On ceftriaxone and azithromycin (day 3 on 12/18) CURB-65 score was 2-3 on admission, is 1 now PSI index was 125 (class IV) on admission, 95 (class IV) now Possible d/c home tomorrow if remain afrebrile and continued improvement D/c low flow O2 today, continue to monitor SPO2 at rest and with ambulation Likely d/c on Augmentin 2g PO Q12H and azithromycin 250 mg PO QD for 3 - 5 days HTN: Chronic condition BP has been stable in 150 range Continue scheduled Coreg and PRN hydralizine as above Microscopic Hematuria: Incidental finding on urinalysis Denies burning, increased frequency or change in color of urine Ruled out nephrolithiasis, interstitial cystitis, bladder tumor based on US report above Recommend outpatient f/u for repeat urinalysis DMII: Chronic condition HbA1c is 7.8, within target range of 7-8 for elderly with comorbidities Continue regular POC BGT Continue basal and sliding scale insulins as above COPD: Chronic condition, low suspicion of acute exacerbation Continue scheduled Dulera and PRN Duoneb as above DVT Prophylaxis: Continue heparin as above Constipation: No BM since admission Ordered Miralax as above Encouraged adequate water intake and ambulation as tolerated <Deb Franco - Last Filed: 12/18/18 16:41> Hospitalist Progress Note Reviewed and agree with excellent MSIII note. In short 83 PMH HF(?) COPD HTN IDDM depression who presented with sepsis thought to be 2/2 to pulm source, also with microscopic hematuria. Clinically improving sig on HD 3 as per above. Will continue treatment for CAP and look to taper to orals for a total of 7 days. Will need outpt FU microscopic hematuria.
[2018-12-18] MEDS: Insulin LISPRO* 1 UNITS UNIT SUBCUT SCH ×4 (08:37→20:32)
[2018-12-18] MEDS: Insulin GLARGINE(*) 1 UNITS UNIT SUBCUT SCH (08:44)
[2018-12-18] MEDS: buPROPion TAB* 75 MG PO SCH ×2 (08:45→20:22)
[2018-12-18] MEDS: Aspirin 81 mg CHEW TAB* 81 MG TAB.CHEW PO SCH (08:45)
[2018-12-18] MEDS: Carvedilol TAB* 6.25 MG PO SCH ×2 (08:46→20:22)
[2018-12-18 09:08] LABS: ABS Eosinophils 0.3 10^3/ul (0-0.6); ABS Lymphocytes 0.8 10^3/ul (1.0-4.8); ABS Monocytes 0.9 10^3/ul (0-0.8); ABS Neutrophils 5.3 10^3/ul (1.5-7.7); Hematocrit 35 % (42-52); Hemoglobin 11.4 g/dL (14.0-18.0); Lymphocyte % 11.5 %; Mean Corpuscular HGB Conc 33 g/dL (31-36); Mean Corpuscular Hemoglobin 29 pg (27-31); Mean Corpuscular Volume 86 fL (80-94); Mean Platelet Volume 9.3 fL (7.4-10.4); Platelet Count 195 10^3/uL (150-450); Red Blood Count 4.01 10^6 /uL (4.18-5.48); Red Cell Distribution Width 13 % (10-15); White Blood Count 7.4 10^3/uL (3.5-10.8)
[2018-12-18 09:25] LABS: EGFR African American 61.8 (>60); EGFR Non-African American 51.1 (>60)
[2018-12-18 10:34] LABS: Erythrocyte Sed Rate 54 mm/Hr (0-19)
[2018-12-18] MEDS: Polyethylene Glycol 3350* 17 GM PACKET PO SCH (13:13)
[2018-12-18] MEDS: Enoxaparin(*) 40 MG/0.4 ML SYR SUBCUT SCH (13:13)
[2018-12-18] MEDS ORDERED: NS 0.9% 1000 ML** 1,000 ML IV SCH (16:15)
[2018-12-18] MEDS: Atorvastatin* 40 MG TAB PO SCH (17:23)
[2018-12-18] MEDS: Azithromycin TAB* 250 MG PO SCH (17:23)
[2018-12-18] MEDS: cefTRIAXone(*) 1 GM in NS 0.9% 50 ML* 50 ML IVPB SCH (17:42)
[2018-12-18] MEDS: Pantoprazole TAB * 40 MG TAB PO SCH (20:23)
--- NOTE | 2018-12-19 06:37 | PN ---
Subjective Date of Service: 12/19/18 Interval History: HD 4 on 12/19 83 y/o M wiht h/o COPD,HTN, Insulin dependent DM2 presented with sub acute cough associated with SOB, confusion, loss of appetite and fatigue. Found to have sepsis with pneumonia. and microscopic hematuria Overnight- was put back on 2L of oxygen as his sat dropped to 89% Vitals stable Has cough-whitish color Denies fever, chest pain Objective Active Medications: Albuterol/Ipratropium (Duoneb (Albuterol 2.5 Mg/Ipratropium 0.5 Mg)) 1 neb INH Q6H PRN PRN Reason: SOB/WHEEZING Aspirin (Aspirin 81 Mg Chew Tab*) 81 mg PO DAILY [facility] Last Admin: 12/18/18 08:45 Dose: 81 mg Atorvastatin Calcium (Lipitor*) 40 mg PO 1700 [facility] Last Admin: 12/18/18 17:23 Dose: 40 mg Azithromycin (Zithromax Tab*) 250 mg PO 1600 [facility] Last Admin: 12/18/18 17:23 Dose: 250 mg Bupropion HCl (Wellbutrin Tab*) 75 mg PO BID [facility] Last Admin: 12/18/18 20:22 Dose: 75 mg Carvedilol (Coreg Tab*) 6.25 mg PO BID [facility] Last Admin: 12/18/18 20:22 Dose: 6.25 mg Dextrose (Dextrose 50% Vial 50 Ml*) 25 ml IV PUSH .FOR FS < 60 - SS PRN PRN Reason: FS < 60 Enoxaparin Sodium (Lovenox(*)) 40 mg SUBCUT Q24H [facility] Last Admin: 12/18/18 13:13 Dose: 40 mg Hydralazine HCl (Apresoline Iv*) 20 mg IV SLOW PU Q2H PRN PRN Reason: HEART RATE/PULSE GREATER THAN: Ceftriaxone Sodium 1 gm/ (Sodium Chloride) 50 mls @ 100 mls/hr IVPB Q24H [facility] Last Admin: 12/18/18 17:42 Dose: 100 mls/hr Insulin Glargine (Lantus(*)) 15 units SUBCUT Q24H [facility] Last Admin: 12/18/18 08:44 Dose: 15 units Insulin Human Lispro (Humalog*) 0 units SUBCUT [facility]; Protocol Last Admin: 12/18/18 20:32 Dose: 6 units Mometasone Furoate/Formoterol Fumar (Dulera 200/5 Mdi*) 2 puff INH BID [facility] Last Admin: 12/18/18 19:27 Dose: 2 puff Pantoprazole Sodium (Protonix Tab*) 40 mg PO BEDTIME [facility] Last Admin: 12/18/18 20:23 Dose: 40 mg Polyethylene Glycol/Electrolytes (Miralax*) 17 gm PO DAILY [facility] Last Admin: 12/18/18 13:13 Dose: 17 gm Vital Signs - 8 hr 12/18/18 12/19/18 23:15 03:15 Temperature 98.8 F 98.5 F Pulse Rate 94 90 Respiratory 18 19 Rate Blood Pressure 151/90 146/70 (mmHg) O2 Sat by Pulse 93 89 Oximetry Oxygen Devices in Use Now: None Exam: Patient is sitting on abed with no acute distress HEENT- Normocephalic and atraumatic Lungs- Clear with bilateral crackles. Heart- S1/S2 heard with no murmur ABdomen- soft, nondistended and nontender. Normal BS heard Extremities- Normal Neuro- Alert, oriented and conscious. Moving all four extremities Result Diagrams: 12/19/18 11:18 12/19/18 11:18 Additional Lab and Data: Laboratory Tests 12/16/18 12/16/18 12/16/18 20:53 21:10 21:10 WBC 11.2 H RBC 4.72 Hgb 13.4 L Hct 41 L MCV 86 MCH 28 MCHC 33 RDW 14 Plt Count 236 MPV 9.7 Neut % (Auto) 84.5 Lymph % (Auto) 4.6 [place] % (Auto) 10.2 Eos % (Auto) 0.4 Baso % (Auto) 0.3 Absolute Neuts (auto) 9.5 H Absolute Lymphs (auto) 0.5 L Absolute Monos (auto) 1.1 H Absolute Eos (auto) 0.0 Absolute Basos (auto) 0.0 Absolute Nucleated RBC 0.0 Nucleated RBC % 0.0 INR (Anticoag Therapy) 1.09 APTT 29.8 Sodium Potassium Chloride Carbon Dioxide Anion Gap BUN Creatinine Est GFR ( Amer) Est GFR (Non-Af Amer) BUN/Creatinine Ratio Glucose POC Glucose (mg/dL) 296 H Lactic Acid Calcium Total Bilirubin AST ALT Alkaline Phosphatase Troponin I C-Reactive Protein B-Natriuretic Peptide Total Protein Albumin Globulin Albumin/Globulin Ratio Influenza A (Rapid) Influenza B (Rapid) 12/16/18 12/16/18 12/16/18 21:10 21:10 21:10 WBC RBC Hgb Hct MCV MCH MCHC RDW Plt Count MPV Neut % (Auto) Lymph % (Auto) [place] % (Auto) Eos % (Auto) Baso % (Auto) Absolute Neuts (auto) Absolute Lymphs (auto) Absolute Monos (auto) Absolute Eos (auto) Absolute Basos (auto) Absolute Nucleated RBC Nucleated RBC % INR (Anticoag Therapy) APTT Sodium 131 L Potassium 4.6 Chloride 96 L Carbon Dioxide 27 Anion Gap 8 BUN 21 Creatinine 1.49 H Est GFR ( Amer) 54.2 Est GFR (Non-Af Amer) 44.8 BUN/Creatinine Ratio 14.1 Glucose 260 H POC Glucose (mg/dL) Lactic Acid 1.4 Calcium 9.4 Total Bilirubin 0.90 AST 14 ALT 14 Alkaline Phosphatase 81 Troponin I 0.01 C-Reactive Protein 127.19 H B-Natriuretic Peptide 60 Total Protein 7.4 Albumin 3.9 Globulin 3.5 Albumin/Globulin Ratio 1.1 Influenza A (Rapid) Influenza B (Rapid) 12/16/18 21:13 WBC RBC Hgb Hct MCV MCH MCHC RDW Plt Count MPV Neut % (Auto) Lymph % (Auto) [place] % (Auto) Eos % (Auto) Baso % (Auto) Absolute Neuts (auto) Absolute Lymphs (auto) Absolute Monos (auto) Absolute Eos (auto) Absolute Basos (auto) Absolute Nucleated RBC Nucleated RBC % INR (Anticoag Therapy) APTT Sodium Potassium Chloride Carbon Dioxide Anion Gap BUN Creatinine Est GFR ( Amer) Est GFR (Non-Af Amer) BUN/Creatinine Ratio Glucose POC Glucose (mg/dL) Lactic Acid Calcium Total Bilirubin AST ALT Alkaline Phosphatase Troponin I C-Reactive Protein B-Natriuretic Peptide Total Protein Albumin Globulin Albumin/Globulin Ratio Influenza A (Rapid) Negative Influenza B (Rapid) Negative Assess/Plan/Problems-Billing Assessment: 83 y/o M wiht h/o Insulin dependent DM, HTN, COPD presented with subacute cough associated with SOB, fatigue, confusion and loss of appetite FOund to be in sepsis with suspected pneumonia and has microscopic hematuria. On ceftriaxone and azithro - Patient Problems (1) Sepsis Current Visit: Yes Status: Acute Comment: -resolved -source- lung- infiltrate on right middle lobe -urine negative for legionella and strept -On ceftriaxone and azithro(day 4 on 12/19) -on incentive spirometry -saturation normal at room air -probable dc tomorrow (2) Hypertension Current Visit: Yes Status: Acute Code(s): I10 - ESSENTIAL (PRIMARY) HYPERTENSION SNOMED Code(s): 83103124 Comment: -well-controlled -improving -Continue coreg adn hydralizine p.r.n (3) Hematuria Current Visit: Yes Status: Acute Code(s): R31.9 - HEMATURIA, UNSPECIFIED SNOMED Code(s): 51482037 Comment: -microscopic -no burning, increased frequency and change in color of urine -could be nephrolithiasis, interstitial cystitis, bladder tumor -US negative for stones and bladder pathology; showed enlarged prostrate though -ESR slightly high -can follow up as an outpatient (4) Diabetes mellitus Current Visit: Yes Status: Acute Code(s): E11.9 - TYPE 2 DIABETES MELLITUS WITHOUT COMPLICATIONS SNOMED Code(s): 27862639 Comment: - On insulin glargine and sliding scale - Hba1c is 7.8- goal is 7-8 in elderly with comorbid condition (5) COPD (chronic obstructive pulmonary disease) Current Visit: Yes Status: Acute Code(s): J44.9 - CHRONIC OBSTRUCTIVE PULMONARY DISEASE, UNSPECIFIED SNOMED Code(s): 28146005 Comment: -No evidence of acute exacerbation -Continue dulera and duoneb (6) DVT prophylaxis Current Visit: Yes Status: Acute Code(s): Z29.9 - ENCOUNTER FOR PROPHYLACTIC MEASURES, UNSPECIFIED SNOMED Code(s): 138335678 Comment: - On lovenox (7) Full code status Current Visit: Yes Status: Acute Code(s): Z78.9 - OTHER SPECIFIED HEALTH STATUS SNOMED Code(s): 431344272 Status and Disposition: Inpatient probable dc tomorrow Attending: Deb Franco Attestation Documenting Resident: Dwain Santos Supervising Physician: Deb Franco Attending/Supervising Physician Comment: Agree with resident note. Attending Addendum: -Some ? of ectopy on strip, 12 lead normal, would recommend d/c tele altogether. -Culture showing Klebseilla, appropriate coverage on CTX, can likely stop azithro Anticipate for early d/c 12/20 Attestation: This service has been performed in part by a resident under the direction of a teaching physician.I, Deb Franco, performed the service, or was physically present during the critical, or ramon portions of the service, furnished by the resident. I participated in the management of the patient.
--- NOTE | 2018-12-19 07:05 | PN ---
<Eladio George - Last Filed: 12/19/18 16:50> Hospitalist Progress Note Date of Service: 12/19/18 S/IE: Omar Looney is an 83 year-old male with a history of COPD, CHF, HTN, DMII who presented on 12/16/18 with SOB, confusion, loss of appetite and fatigue found to have sepsis with pneumonia and microscopic hematuria. This is hospital day 4. Had an episode of hypotension last evening with good response to IV fluids. There was a report of possible atrial flutter by the telemetry today, this was found to be erroneous. Patient is feeling generally well, denies CP or palpitations and is eager to return home. Has been off of IVF and O2 today. Discussed incentive spirometry use, couldn't find device in room, advised nursing. Had several bowel movements after Miralax yesterday. Discussed d/c plan for tomorrow with patient and . Will d/c with Augmentin and arrange for some short term home PT / nursing care. O: PE: 3 Temp Pulse Resp BP Pulse Ox 97.4 F 83 20 156/64 96 12/19/18 15:15 12/19/18 15:15 12/19/18 15:15 12/19/18 15:15 12/19/18 15:15 General: Comfortably sitting in chair, not in acute distress, AAOx4, pleasantly cooperates with interview and examination. HEENT: Head is normocephalic and atraumatic. Hearing is grossly normal b/l. PERRLA. EOMI. Visual acuity grossly normal b/l. Nares patent. Oral mucosa pink and moist. Good dentition. No JVD. Trachea midline. No lymphadenopathy. Chest: Unlabored breathing with normal symmetric chest motion. Some crackles / congestion on auscultation b/l. Regular heart rhythm. Normal S1/S2. No rubs, click, gallops. Abdomen: Soft, non-tender, non-distended. Extremities: UE and LE distal CMS intact b/l. 5/5 handgrip strength. Recent Labs: 3 12/19/18 12/19/18 12/19/18 11:18 11:18 11:37 WBC 8.0 RBC 3.81 L Hgb 10.9 L Hct 33 L MCV 85 MCH 29 MCHC 34 RDW 13 Plt Count 213 MPV 9.1 Neut % (Auto) 77.0 Lymph % (Auto) 9.2 [place] % (Auto) 9.7 Eos % (Auto) 3.8 Baso % (Auto) 0.3 Absolute Neuts (auto) 6.1 Absolute Lymphs (auto) 0.7 L Absolute Monos (auto) 0.8 Absolute Eos (auto) 0.3 Absolute Basos (auto) 0.0 Absolute Nucleated RBC 0.0 Nucleated RBC % 0.1 Sodium 135 Potassium 4.0 Chloride 103 Carbon Dioxide 26 Anion Gap 6 BUN 16 Creatinine 1.31 H Est GFR ( Amer) 62.9 Est GFR (Non-Af Amer) 52.0 BUN/Creatinine Ratio 12.2 Glucose 247 H POC Glucose (mg/dL) 254 H Calcium 8.7 3 12/18/18 12/18/18 12/18/18 08:35 08:35 08:36 WBC 7.4 RBC 4.01 L Hgb 11.4 L Hct 35 L MCV 86 MCH 29 MCHC 33 RDW 13 Plt Count 195 MPV 9.3 Neut % (Auto) 71.9 Lymph % (Auto) 11.5 [place] % (Auto) 12.3 Eos % (Auto) 4.0 Baso % (Auto) 0.3 Absolute Neuts (auto) 5.3 Absolute Lymphs (auto) 0.8 L Absolute Monos (auto) 0.9 H Absolute Eos (auto) 0.3 Absolute Basos (auto) 0.0 Absolute Nucleated RBC 0.0 Nucleated RBC % 0.0 ESR 54 H Sodium 137 Potassium 4.0 Chloride 102 Carbon Dioxide 26 Anion Gap 9 BUN 16 Creatinine 1.33 H Est GFR ( Amer) 61.8 Est GFR (Non-Af Amer) 51.1 BUN/Creatinine Ratio 12.0 Glucose 94 POC Glucose (mg/dL) 109 H Calcium 9.0 Sputum Culture Results (12/19/18): Positive for klebsiella ornithinolytica Sensitivities pending Urine Culture (12/18/18): No growth Sputum Smear Results (12/18/18): 4+ Epithelial Cells 3+ Neutrophils Mixed Morphotypes, resembling Normal Maria Eugenia Aerobic and Anerobic Venous Blood Cultures (12/17/18): No growth Renal and Bladder US (12/17/18): INDICATION: Hematuria. COMPARISON: Comparison is made with a prior CT of the abdomen and pelvis from December 18, 2009 and a prior renal ultrasound from January 21, 2013. TECHNIQUE: Multiple real-time images of the kidneys and urinary bladder were obtained. FINDINGS: The kidneys are normal in size shape and echogenicity. The right kidney measured 11.2 x 5.5 x 5.0 cm and the left kidney measured 10.1 x 5.5 x 5.0 cm. No significant focal renal abnormality or hydronephrosis is seen. The bladder is normal in contour. No intraluminal abnormalities are seen. No bladder wall thickening is noted. There are bilateral ureteral jets present within the urinary bladder. The prostate gland measured 3.7 x 4.0 x 4.2 cm for a total volume of 33 ml. The prevoid volume was 250 ml and a post void residual was 57 ml. IMPRESSION: ENLARGED PROSTATE GLAND, SMALL TO MODERATE POST VOID RESIDUAL. Current Medications: Albuterol/Ipratropium (Duoneb (Albuterol 2.5 Mg/Ipratropium 0.5 Mg)) 1 neb INH Q6H PRN PRN Reason: SOB/WHEEZING Aspirin (Aspirin 81 Mg Chew Tab*) 81 mg PO DAILY [facility] Last Admin: 12/19/18 10:02 Dose: 81 mg Atorvastatin Calcium (Lipitor*) 40 mg PO 1700 [facility] Last Admin: 12/19/18 16:27 Dose: 40 mg Bupropion HCl (Wellbutrin Tab*) 75 mg PO BID [facility] Last Admin: 12/19/18 10:02 Dose: 75 mg Carvedilol (Coreg Tab*) 6.25 mg PO BID [facility] Last Admin: 12/19/18 10:02 Dose: 6.25 mg Dextrose (Dextrose 50% Vial 50 Ml*) 25 ml IV PUSH .FOR FS < 60 - SS PRN PRN Reason: FS < 60 Enoxaparin Sodium (Lovenox(*)) 40 mg SUBCUT Q24H [facility] Last Admin: 12/19/18 12:53 Dose: 40 mg Hydralazine HCl (Apresoline Iv*) 20 mg IV SLOW PU Q2H PRN PRN Reason: HEART RATE/PULSE GREATER THAN: Ceftriaxone Sodium 1 gm/ (Sodium Chloride) 50 mls @ 100 mls/hr IVPB Q24H [facility] Last Admin: 12/18/18 17:42 Dose: 100 mls/hr Insulin Glargine (Lantus(*)) 15 units SUBCUT Q24H [facility] Last Admin: 12/19/18 07:53 Dose: 15 units Insulin Human Lispro (Humalog*) 0 units SUBCUT ACHS [facility]; Protocol Last Admin: 12/19/18 16:27 Dose: 2 units Mometasone Furoate/Formoterol Fumar (Dulera 200/5 Mdi*) 2 puff INH BID [facility] Last Admin: 12/19/18 07:59 Dose: 2 puff Pantoprazole Sodium (Protonix Tab*) 40 mg PO BEDTIME [facility] Last Admin: 12/18/18 20:23 Dose: 40 mg Polyethylene Glycol/Electrolytes (Miralax*) 17 gm PO DAILY [facility] Last Admin: 12/19/18 10:00 Dose: Not Given Recent Orders: 12/18/18 17:52 Provider To Nurse Communicatio .ONCE 12/20/18 06:00 BMP [Basic Metabolic Panel] [CHEM] DAILY CBC Auto Diff DAILY 12/21/18 06:00 BMP [Basic Metabolic Panel] [CHEM] DAILY CBC Auto Diff DAILY 12/22/18 06:00 BMP [Basic Metabolic Panel] [CHEM] DAILY A/I: 83 year-old male with a history of COPD, CHF, HTN, DMII who presented on with SOB, confusion, loss of appetite and fatigue being treated for sepsis due to klebsiella pneumonia P: Sepsis / PNA: Presented with fever, tachycardia, tachypnea CXR showed infiltrate on right middle lobe Urine negative for legionella and strept Sputum smear showed 4+ epithelial cells, 3+ neutrophils Sputum culture positive for klebsiella pneumonia Venous blood cultures negative Urine cultures negative Received IVF On ceftriaxone and azithromycin (day 4 on 12/19) CURB-65 score was 2-3 on admission, is 1 now PSI index was 125 (class IV) on admission, 95 (class IV) now Plan for d/c home tomorrow D/c on Augmentin for 7 days HTN: Chronic condition BP has been stable in 150 range Continue scheduled Coreg and PRN hydralizine as above Microscopic Hematuria: Incidental finding on urinalysis Denies burning, increased frequency or change in color of urine Ruled out nephrolithiasis, interstitial cystitis, bladder tumor based on US report above Recommend outpatient f/u for repeat urinalysis DMII: Chronic condition HbA1c is 7.8, within target range of 7-8 for elderly with comorbidities Continue regular POC BGT Continue basal and sliding scale insulins as above COPD: Chronic condition, low suspicion of acute exacerbation Discussed use of existing home albuterol rescue inhaler if needed DVT Prophylaxis: Continue Lovenox as above until d/c Constipation: Miralax given yesterday with good effect Encouraged adequate water intake and ambulation as tolerated <Deb Franco - Last Filed: 12/19/18 18:26> Hospitalist Progress Note Agree with excellent MSIII note, of note Klebseilla on sputum can d/c on Augmentin alone
[2018-12-19] MEDS: Insulin LISPRO* 1 UNITS UNIT SUBCUT SCH ×4 (07:22→20:42)
[2018-12-19] MEDS: Insulin GLARGINE(*) 1 UNITS UNIT SUBCUT SCH (07:53)
[2018-12-19] MEDS: Mometasone/Formoter 200/5 MDI INH SCH ×2 (07:59→20:11)
[2018-12-19] MEDS: Polyethylene Glycol 3350* 17 GM PACKET PO SCH (10:00)
[2018-12-19] MEDS: Carvedilol TAB* 6.25 MG PO SCH ×2 (10:02→20:42)
[2018-12-19] MEDS: Aspirin 81 mg CHEW TAB* 81 MG TAB.CHEW PO SCH (10:02)
[2018-12-19] MEDS: buPROPion TAB* 75 MG PO SCH ×2 (10:02→20:42)
[2018-12-19 11:33] LABS: ABS Eosinophils 0.3 10^3/ul (0-0.6); ABS Lymphocytes 0.7 10^3/ul (1.0-4.8); ABS Monocytes 0.8 10^3/ul (0-0.8); ABS Neutrophils 6.1 10^3/ul (1.5-7.7); Eosinophil % 3.8 %; Hematocrit 33 % (42-52); Hemoglobin 10.9 g/dL (14.0-18.0); Lymphocyte % 9.2 %; Mean Corpuscular HGB Conc 34 g/dL (31-36); Mean Corpuscular Hemoglobin 29 pg (27-31); Mean Corpuscular Volume 85 fL (80-94); Mean Platelet Volume 9.1 fL (7.4-10.4); Nucleated Red Blood Cells % 0.1; Platelet Count 213 10^3/uL (150-450); Red Blood Count 3.81 10^6 /uL (4.18-5.48); Red Cell Distribution Width 13 % (10-15)
[2018-12-19 11:59] LABS: BUN/Creatinine Ratio 12.2 (8-20); Calcium 8.7 mg/dL (8.6-10.3); EGFR African American 62.9 (>60)
[2018-12-19] MEDS: Enoxaparin(*) 40 MG/0.4 ML SYR SUBCUT SCH (12:53)
[2018-12-19] MEDS: Atorvastatin* 40 MG TAB PO SCH (16:27)
[2018-12-19] MEDS: Azithromycin TAB* 250 MG PO SCH (16:41)
[2018-12-19] MEDS: cefTRIAXone(*) 1 GM in NS 0.9% 50 ML* 50 ML IVPB SCH (18:03)
[2018-12-19] MEDS: Pantoprazole TAB * 40 MG TAB PO SCH (20:42)
[2018-12-20 06:10] LABS: ABS Eosinophils 0.3 10^3/ul (0-0.6); ABS Lymphocytes 0.8 10^3/ul (1.0-4.8); ABS Monocytes 0.9 10^3/ul (0-0.8); ABS Neutrophils 5.1 10^3/ul (1.5-7.7); Eosinophil % 4.2 %; Hematocrit 32 % (42-52); Hemoglobin 10.8 g/dL (14.0-18.0); Lymphocyte % 11.3 %; Mean Corpuscular HGB Conc 34 g/dL (31-36); Mean Corpuscular Hemoglobin 29 pg (27-31); Mean Corpuscular Volume 86 fL (80-94); Mean Platelet Volume 9.3 fL (7.4-10.4); Platelet Count 201 10^3/uL (150-450); Red Blood Count 3.69 10^6 /uL (4.18-5.48); Red Cell Distribution Width 14 % (10-15); White Blood Count 7.1 10^3/uL (3.5-10.8)
[2018-12-20 06:24] LABS: BUN/Creatinine Ratio 11.2 (8-20); Calcium 8.7 mg/dL (8.6-10.3); EGFR African American 66.4 (>60); EGFR Non-African American 54.9 (>60); Potassium 3.7 mmol/L (3.5-5.0)
[2018-12-20] MEDS: Mometasone/Formoter 200/5 MDI INH SCH (07:36)
[2018-12-20 07:48] VITALS: BP 116/69
[2018-12-20] MEDS: Insulin LISPRO* 1 UNITS UNIT SUBCUT SCH (08:52)
[2018-12-20] MEDS: Insulin GLARGINE(*) 1 UNITS UNIT SUBCUT SCH (08:54)
[2018-12-20] MEDS: Aspirin 81 mg CHEW TAB* 81 MG TAB.CHEW PO SCH (09:57)
[2018-12-20] MEDS: Carvedilol TAB* 6.25 MG PO SCH (09:57)
[2018-12-20] MEDS: Polyethylene Glycol 3350* 17 GM PACKET PO SCH ×2 (09:57→09:59)
[2018-12-20] MEDS: buPROPion TAB* 75 MG PO SCH (09:57)
--- NOTE | 2018-12-20 10:48 | DS ---
CC: [facility] DISCHARGE SUMMARY: DATE OF ADMISSION: 12/17/18 DATE OF DISCHARGE: 12/20/18 PRIMARY CARE PROVIDER: The patient has no PCP. DISPOSITION AT THE TIME OF DISCHARGE: Stable to be discharged to home. PRIMARY DIAGNOSES: Community-acquired pneumonia and sepsis. SECONDARY DIAGNOSES: 1. History of heart failure with unknown type of severity. 2. Chronic obstructive pulmonary disease. 3. Hypertension. 4. Insulin-dependent diabetes. 5. Hyperlipidemia. 6. Chronic kidney disease. MEDICATIONS AT THE TIME OF DISCHARGE: Include: 1. Furosemide 20 mg p.o. daily. 2. Metformin 850 mg p.o. b.i.d. 3. Toujeo 15 units subcutaneous q.a.m. 4. Aspirin 81 mg p.o. daily. 5. Atorvastatin 40 mg p.o. q.p.m. 6. Bupropion 1 tab p.o. b.i.d. 7. Carvedilol 6.25 mg 1 tab p.o. b.i.d. 8. Fluticasone and salmeterol 1 puff inhaled daily. 9. Omeprazole 20 mg p.o. nightly. 10. Augmentin 875 one tablet p.o. b.i.d. for additional 2 days after discharge. HISTORY OF PRESENT ILLNESS AND HOSPITAL COURSE: An 83-year-old man domiciled at home with his , who presented on 12/17/18 after 2 days of increasing fatigue, coughing, and confusion. Prior to that , he was in his usual state of health and he was undergoing a subacute workup for chronic dyspnea on exertion. In the emergency room, he was found to be septic and was found to be febrile to 101. His heart rate was tachycardic to 108. In the emergency room, a chest x-ray was done, which was concerni ng for a right upper lobe infiltrate. He also was pancultured and because of his sepsis and concern for community-acquired pneumonia, the hospitalist team was asked to evaluate and admit him and his ho spital course by problem list as follows: 1. Community-acquired pneumonia with associated sepsis. The patient's sepsis resolved after sepsis bundle was initiated. He had no evidence of septic shock and no end-organ damage. For his community -acquired pneumonia, he was initially started on broad-spectrum antibiotics, although narrowed to cef triaxone and azithromycin. His culture data proved to be negative with the exception of his sputum, which showed klebsiella and then his antibiotics were further narrowed to ceftriaxone alone. He shou ld be discharged on it for a total of 7 days for community-acquired pneumonia. The patient did very well. Had no oxygen requirements on day of discharge, tolerating diet, ambulating freely, and confus ion resolved completely. 2. Insulin-dependent diabetes. His home metformin was held, but his home insulin was continued with sliding scale insulin without complications. 3. Hypertension. Home medications are continued. 4. CAD. Home medications are continued. 5. COPD. The patient did not have any evidence of exacerbation. He is not on any steroids. He use s a rescue inhaler very infrequently at baseline with only may be 1 to 2 COPD exacerbations in the co urse of a year. 6. Hematuria. The patient was noted to have hematuria on his urinalysis, which was microscopically 2+ blood and his urine culture proved to be negative. He had no burning. No increased frequency or change in color of his urine. An ultrasound was done still for some bladder pathology, which showed an enlarged prostate, but no other pathology. The differential remains interstitial cystitis. Other bladder pathology, less likely nephrolithiasis if he has any symptoms and this should be followed up as an outpatient. 7. DVT prophylaxis. The patient was kept on Lovenox. Plan of care on day of discharge is to discharge home with , who is a retired nurse as well as [facility] home care nursing and PT. He did work with PT who recommended that he was safe to return to home as he was ambulating about the floor. LABS AND STUDIES DONE DURING THIS HOSPITALIZATION: On 12/20/18, day of discharge, white blood cell c ount 7.1, hemoglobin 10.8, hematocrit 32, platelets 201. BMP: Sodium 139, potassium 3.7, chloride 10 4, carbon dioxide 26, anion gap 8, BUN 14, creatinine 1.25, which is patient's baseline. A brain CT was done on 12/16/18, showed no acute intracranial pathology. EKG was done, which showed sinus rhythm with right bundle-branch block, unchanged from prior abdominal bladder ultrasound done o n 12/17/18, does not show any pathology in kidneys or bladder. No stones. Chest x-ray done on 12/16, shows right upper lobe consolidation, hazy down to right middle lobe as well. Micro included bl ood cultures, which were negative; urine cultures, which were negative; and sputum culture which was positive klebsiella. CONSULTANTS DURING THIS HOSPITALIZATION: None. ITEMS TO FOLLOW UP ON STATUS POST DISCHARGE: 1. Microscopic hematuria, noticed during this hospitalization and referral to Urology can be done as primary care feels is needed or repeat UA can be done in the future. 2. Community-acquired pneumonia. The patient had high CURB-65 score but low PSI score with low mort ality, stable for discharge home with Augmentin. He improved significantly in the course of his hosp italization without complications. 3. CKD. The patient has evidence of chronic kidney disease, creatinine 1.2 and 1.3, this is added t o his problem list. TIME SPENT: Forty-five minutes was spent on the planning of this discharge with over half of that wa s spent directly at the bedside of the patient providing direct patient care. This hospital summary is a distillation of a total of 5 days of hospitalization and if there are more specifics, please look at the chart directly. If there are any questions about the care of this pat ient during this hospitalization, please do not hesitate to reach out and contact me directly, my shirlene lphone is [phone]. [id number]/[facility] #: [id number]
--- NOTE | 2018-12-20 16:14 | PN ---
Hospitalist Progress Note Date of Service: 12/20/18 Day of discharge note: 83 M who presented with CAP-improved sig found to have klebseilla on micro also incidentally with microscopic hematuria VSS No acut events overnight Seen in morning feeling well no complaints PE Pleasant man in NAD RRR no MRG CTABL except for scant crackle sin L lung base that clear with cough Belly soft NT ND Ext warm well perfused no edema Plan: Continue abx for 2 days s/p d/c. Plan of care discussed with , nurse and patient. Stable for d/c to home
== END 2018-12-20 10:45 | disposition home or self-care (01) | DRG 871 ==
LOC: ED 20:35 → MED 23:47
PROVIDERS: ADMIT Internal Medicine; ATTEND Internal Medicine
DX: A41.59 Other Gram-negative sepsis (principal); J15.6 Pneumonia due to other Gram-negative bacteria; J44.0 Chronic obstructive pulmonary disease with (acute) lower respiratory infection; I13.0 Hypertensive heart and chronic kidney disease with heart failure and stage 1 through stage 4 chronic kidney disease, or unspecified chronic kidney disease; I50.9 Heart failure, unspecified; E11.22 Type 2 diabetes mellitus with diabetic chronic kidney disease; N18.9 Chronic kidney disease, unspecified; E78.5 Hyperlipidemia, unspecified; K59.00 Constipation, unspecified; N30.11 Interstitial cystitis (chronic) with hematuria; I25.10 Atherosclerotic heart disease of native coronary artery without angina pectoris; N40.0 Benign prostatic hyperplasia without lower urinary tract symptoms; K21.9 Gastro-esophageal reflux disease without esophagitis; Z82.3 Family history of stroke; Z79.82 Long term (current) use of aspirin; Z79.899 Other long term (current) drug therapy; Z79.4 Long term (current) use of insulin; Z88.8 Allergy status to other drugs, medicaments and biological substances; Z87.891 Personal history of nicotine dependence; Z28.21 Immunization not carried out because of patient refusal
CPT/HCPCS: 36415; 70450; 71046; 76770; 80048; 80053; 81003; 81015; 83036; 83605; 83880; 84484; 85025; 85610; 85652; 85730; 86140; 87040; 87070; 87077; 87086; 87186; 87205; 87899; 93005; 94640; 96374; 99284; A9270-GY; G8978-GP-CJ; G8979-GP-CI; J0456; J0696; J1644; J1650; J2543

== ENCOUNTER 2019-11-10 16:18 | Inpatient (IN) ==
[2019-11-10] MEDS ORDERED: NS 0.9% 1000 ml BAG 1,000 ML IV ONE (16:31)
[2019-11-10] MEDS ORDERED: Atropine 0.1 MG/ML 10 ml SYR (1 mg) IV PUSH ONE (16:41)
[2019-11-10] MEDS ORDERED: Atropine 0.1 MG/ML 10 ml SYR (1 mg) ONE (16:42)
[2019-11-10 16:45] LABS: ABS Eosinophils 0.2 10^3/ul (0-0.6); ABS Lymphocytes 1.3 10^3/ul (1.0-4.8); ABS Monocytes 0.8 10^3/ul (0-0.8); ABS Neutrophils 6.2 10^3/ul (1.5-7.7); Eosinophil % 1.9 %; Hematocrit 41 % (42-52); Hemoglobin 13.6 g/dL (14.0-18.0); Lymphocyte % 15.2 %; Mean Corpuscular HGB Conc 33 g/dL (31-36); Mean Corpuscular Hemoglobin 28 pg (27-31); Mean Corpuscular Volume 86 fL (80-94); Mean Platelet Volume 10.2 fL (7.4-10.4); Platelet Count 212 10^3/uL (150-450); Red Cell Distribution Width 14 % (10-15); White Blood Count 8.5 10^3/uL (3.5-10.8)
[2019-11-10 16:57] LABS: ALT 35 U/L (7-52); AST 33 U/L (13-39); Albumin 4.3 g/dL (3.2-5.2); Albumin/Globulin Ratio 1.4 (1-3); Alkaline Phosphatase 78 U/L (34-104); BUN/Creatinine Ratio 12.4 (8-20); Blood Urea Nitrogen 24 mg/dL (6-24); CO2 Carbon Dioxide 24 mmol/L (22-32); Calcium 8.9 mg/dL (8.6-10.3); Chloride 102 mmol/L (101-111); EGFR African American 40.1 (>60); EGFR Non-African American 33.2 (>60); Globulin 3.1 g/dL (2-4); Glucose 202 mg/dL (70-100); Sodium 136 mmol/L (135-145); Total Protein 7.4 g/dL (6.4-8.9)
[2019-11-10 17:03] LABS: Anion Gap 10 mmol/L (2-11); Potassium 5.4 mmol/L (3.5-5.0)
[2019-11-10 17:04] LABS: Troponin I 0.04 ng/mL (<0.03)
[2019-11-10] MEDS ORDERED: Albuterol 2.5mg/3 ml (0.083%) NEB.SOLN INH ONE (17:08)
[2019-11-10] MEDS ORDERED: Magnesium Sulf 4 GM/100 ML IV 4,000 MG/100 ML BAG IVPB ONE (17:08)
[2019-11-10] MEDS ORDERED: Sodium Bicarbonate 8.4% SYR 50 ml SYRINGE IV ONE (17:08)
[2019-11-10] MEDS ORDERED: Dextrose 50% Syringe 50 ml 25 GM/50 ML SYRINGE IV PUSH ONE (17:08)
[2019-11-10] MEDS ORDERED: NS 0.9% 1000 ml BAG 1,000 ML IV SCH (17:30)
[2019-11-10 17:35] LABS: T4, Total 9.48 mcg/dL (6.09-12.23)
[2019-11-10 17:38] LABS: TSH Ultra Thyroid Stim Horm 2.32 mcIU/mL (0.34-5.60)
[2019-11-10] MEDS ORDERED: Dextrose 50% Syringe 50 ml 25 GM/50 ML SYRINGE IV PUSH PRN (18:03)
[2019-11-11 05:05] LABS: Anion Gap 8 mmol/L (2-11); CO2 Carbon Dioxide 23 mmol/L (22-32); Calcium 7.9 mg/dL (8.6-10.3); Chloride 109 mmol/L (101-111); Magnesium 1.9 mg/dL (1.9-2.7); Potassium 4.6 mmol/L (3.5-5.0); Sodium 140 mmol/L (135-145)
[2019-11-11 05:11] LABS: BUN/Creatinine Ratio 14.4 (8-20); Blood Urea Nitrogen 24 mg/dL (6-24); EGFR African American 47.4 (>60); EGFR Non-African American 39.2 (>60); Glucose 105 mg/dL (70-100)
[2019-11-11] MEDS ORDERED: Perflutren Lipid Microsphere 3 ML VIAL ONE (07:58)
[2019-11-11] MEDS: Aspirin EC 81 mg TAB.EC (enteric coated) PO SCH (08:23)
[2019-11-11 09:23] LABS: INR 0.97 (0.82-1.09)
[2019-11-11] MEDS ORDERED: ceFAZolin VIAL 1 GM in NS 0.9% 50 ML 50 ML IVPB ONE (09:26)
[2019-11-11] MEDS: hydrALAZINE 20 mg/ml 1 ML Vial IV IV SLOW PU PRN ×2 (09:45→16:43)
[2019-11-11] MEDS ORDERED: ceFAZolin 2 GM PREMIX 2 GM/50 ML BAG IVPB ONE (10:00)
[2019-11-11] MEDS ORDERED: ceFAZolin VIAL 1 GM in NS *SYRINGE* 10 ML IVPB ONE (10:00)
[2019-11-11] MEDS ORDERED: Lidocaine 1% VIAL 10 MG/ML VIAL ONE (10:04)
[2019-11-11] MEDS ORDERED: Midazolam 5 mg/5 ml VIAL 1 mg/ml 5 ml VIAL (5 mg) ONE (10:13)
[2019-11-11] MEDS ORDERED: fentaNYL 100 mcg/2 ml 50 MCG/ML VIAL ONE (10:13)
[2019-11-11] MEDS ORDERED: Metoprolol Tartrate 5 mg VIAL 5 ml VIAL (1 mg/ml) ONE (10:19)
[2019-11-11] MEDS ORDERED: Flumazenil 0.5 mg/5 ml 0.1 MG/ML 5 ml VIAL ONE (10:19)
[2019-11-11] MEDS ORDERED: Naloxone 0.4 mg VIAL 0.4 mg/ml 1 ml VIAL ONE (10:19)
[2019-11-11] MEDS ORDERED: ceFAZolin VIAL 1 GM in NS 0.9% 50 ML 50 ML IVPB SCH (11:00)
[2019-11-11 11:31] LABS: Troponin I 4.94 ng/mL (<0.03)
[2019-11-11] MEDS: ceFAZolin VIAL 1 GM in NS 0.9% 50 ML 50 ML IVPB SCH (17:33)
[2019-11-11] MEDS ORDERED: Metoprolol Tartrate 5 mg VIAL 5 ml VIAL (1 mg/ml) IV ONE (18:55)
[2019-11-11] MEDS ORDERED: Lorazepam PYXIS KEY PRN (20:26)
[2019-11-11] MEDS ORDERED: LORazepam 2 mg VIAL 1 ml IV PUSH ONE (20:26)
[2019-11-12] MEDS: hydrALAZINE 20 mg/ml 1 ML Vial IV IV SLOW PU PRN (00:07)
[2019-11-12] MEDS: ceFAZolin VIAL 1 GM in NS 0.9% 50 ML 50 ML IVPB SCH ×3 (02:26→09:56)
[2019-11-12 05:41] LABS: ABS Eosinophils 0.2 10^3/ul (0-0.6); ABS Monocytes 0.8 10^3/ul (0-0.8); ABS Neutrophils 5.6 10^3/ul (1.5-7.7); Eosinophil % 2.3 %; Hematocrit 36 % (42-52); Hemoglobin 11.8 g/dL (14.0-18.0); Lymphocyte % 12.8 %; Mean Corpuscular HGB Conc 33 g/dL (31-36); Mean Corpuscular Hemoglobin 28 pg (27-31); Mean Corpuscular Volume 85 fL (80-94); Nucleated Red Blood Cells % 0.1; Platelet Count 166 10^3/uL (150-450); Red Cell Distribution Width 14 % (10-15); White Blood Count 7.5 10^3/uL (3.5-10.8)
[2019-11-12 06:00] LABS: Anion Gap 8 mmol/L (2-11); BUN/Creatinine Ratio 12.9 (8-20); Blood Urea Nitrogen 21 mg/dL (6-24); CO2 Carbon Dioxide 25 mmol/L (22-32); Calcium 8.9 mg/dL (8.6-10.3); Chloride 106 mmol/L (101-111); EGFR African American 48.8 (>60); EGFR Non-African American 40.3 (>60); Glucose 140 mg/dL (70-100); Magnesium 1.6 mg/dL (1.9-2.7); Potassium 4.7 mmol/L (3.5-5.0); Sodium 139 mmol/L (135-145)
[2019-11-12 06:15] LABS: Troponin I 1.92 ng/mL (<0.03)
[2019-11-12] MEDS ORDERED: Magnesium Sulfate 2 gm BAG 2 GM/50 ML BAG IVPB ONE (07:01)
[2019-11-12] MEDS: Aspirin EC 81 mg TAB.EC (enteric coated) PO SCH (08:33)
[2019-11-12] MEDS: Heparin 5000 UNITS/ML 1 mL VIAL SUBCUT SCH ×2 (11:05→20:00)
[2019-11-13] MEDS: Aspirin EC 81 mg TAB.EC (enteric coated) PO SCH (07:59)
[2019-11-13] MEDS: Heparin 5000 UNITS/ML 1 mL VIAL SUBCUT SCH ×2 (08:00→20:28)
[2019-11-13] MEDS ORDERED: Albuterol 2.5mg/3 ml (0.083%) NEB.SOLN INH PRN (08:55)
[2019-11-13 09:14] LABS: Anion Gap 5 mmol/L (2-11); BUN/Creatinine Ratio 13.5 (8-20); Blood Urea Nitrogen 23 mg/dL (6-24); CO2 Carbon Dioxide 26 mmol/L (22-32); Calcium 8.9 mg/dL (8.6-10.3); Chloride 105 mmol/L (101-111); EGFR African American 46.2 (>60); EGFR Non-African American 38.1 (>60); Glucose 136 mg/dL (70-100); Magnesium 1.9 mg/dL (1.9-2.7); Sodium 136 mmol/L (135-145)
[2019-11-13 09:21] LABS: Troponin I 0.93 ng/mL (<0.03)
[2019-11-13] MEDS: Mometasone/Formoter 200/5 MDI INH SCH ×2 (09:24→20:10)
[2019-11-13] MEDS ORDERED: Perflutren Lipid Microsphere 3 ML VIAL ONE (10:04)
[2019-11-14] MEDS: Mometasone/Formoter 200/5 MDI INH SCH (07:44)
[2019-11-14] MEDS: Aspirin EC 81 mg TAB.EC (enteric coated) PO SCH (09:45)
[2019-11-14] MEDS: Heparin 5000 UNITS/ML 1 mL VIAL SUBCUT SCH (09:45)
[2019-11-14 11:18] LABS: CO2 Carbon Dioxide 16 mmol/L (22-32); Calcium 8.1 mg/dL (8.6-10.3); Chloride 106 mmol/L (101-111); Sodium 130 mmol/L (135-145)
[2019-11-14 11:24] LABS: BUN/Creatinine Ratio 14.2 (8-20); Blood Urea Nitrogen 28 mg/dL (6-24); EGFR African American 39.2 (>60); EGFR Non-African American 32.4 (>60); Glucose 165 mg/dL (70-100)
[2019-11-14 11:30] LABS: Anion Gap 8 mmol/L (2-11)
[2019-11-14] MEDS ORDERED: Influenza VAC *QUAD* 2020-21* 0.5 ML SYRINGE IM ONE (16:00)
[2019-11-14 17:44] VITALS: BP 143/63
== END 2019-11-14 16:37 | disposition home or self-care (01) | DRG 242 ==
LOC: ED 16:18 → ICU 17:37 → MEDTELE 11-12 11:09
PROVIDERS: ADMIT Internal Medicine; ATTEND Pediatrics

== ENCOUNTER 2020-05-24 12:11 | Inpatient (IN) ==
[2020-05-24] MEDS ORDERED: NS 0.9% 1000 ml BAG 1,000 ML IV ONE ×2 (13:36→15:34)
[2020-05-24 14:04] LABS: ABS Basophils 0.1 10^3/ul (0-0.2); ABS Eosinophils 0.3 10^3/ul (0-0.6); ABS Lymphocytes 1.1 10^3/ul (1.0-4.8); ABS Monocytes 0.7 10^3/ul (0-0.8); ABS Neutrophils 3.1 10^3/ul (1.5-7.7); Eosinophil % 5.7 %; Hematocrit 38 % (42-52); Lymphocyte % 20.9 %; Mean Corpuscular HGB Conc 32 g/dL (31-36); Mean Corpuscular Hemoglobin 26 pg (27-31); Mean Corpuscular Volume 82 fL (80-94); Mean Platelet Volume 8.9 fL (7.4-10.4); Platelet Count 252 10^3/uL (150-450); Red Blood Count 4.56 10^6 /uL (4.18-5.48); Red Cell Distribution Width 15 % (10-15); White Blood Count 5.3 10^3/uL (3.5-10.8)
[2020-05-24 14:18] LABS: ALT 15 U/L (7-52); AST 20 U/L (13-39); Albumin 3.9 g/dL (3.2-5.2); Albumin/Globulin Ratio 1.1 (1-3); Alkaline Phosphatase 88 U/L (34-104); Blood Urea Nitrogen 26 mg/dL (6-24); CO2 Carbon Dioxide 28 mmol/L (22-32); Calcium 9.4 mg/dL (8.6-10.3); Chloride 100 mmol/L (101-111); EGFR African American 35.2 (>60); EGFR Non-African American 29.1 (>60); Globulin 3.4 g/dL (2-4); Glucose 197 mg/dL (70-100); Magnesium 1.7 mg/dL (1.9-2.7); Sodium 134 mmol/L (135-145); Total Protein 7.3 g/dL (6.4-8.9)
[2020-05-24 14:23] LABS: Anion Gap 6 mmol/L (2-11); Potassium 5.2 mmol/L (3.5-5.0); Troponin I 0.03 ng/mL (<0.03)
[2020-05-24 14:31] LABS: TSH Ultra Thyroid Stim Horm 1.48 mcIU/mL (0.34-5.60)
[2020-05-24] MEDS ORDERED: Magnesium Sulfate IV 1GM/100ML 1 GM/100 ML BAG IV ONE (14:58)
[2020-05-24 15:42] LABS: Urine Appearance Clear; Urine Bilirubin Negative (Negative); Urine Blood Negative (Negative); Urine Color Yellow; Urine Glucose Negative (Negative); Urine Ketones Negative (Negative); Urine Nitrite Negative (Negative); Urine Protein 1+(30 mg/dL) (Negative); Urine Specific Gravity 1.008 (1.002-1.030); Urine Urobilinogen Negative (Negative)
[2020-05-24 15:53] LABS: Urine Bacteria Absent (Absent); Urine Red Blood Cell Absent (Absent); Urine White Blood Cell Absent (Absent)
[2020-05-24 17:16] LABS: Troponin I 0.03 ng/mL (<0.03)
[2020-05-24] MEDS ORDERED: Albuterol HFA INHALER 8 gm MDI INH ONE (17:52)
[2020-05-24 20:55] LABS: C Reactive Protein 1.07 mg/L (<8.01)
[2020-05-24] MEDS ORDERED: cefTRIAXone 1 gm/50 mL NS BAG 1 GM/50 ML BAG IVPB SCH (21:57)
[2020-05-24] MEDS ORDERED: Magnesium Sulfate 2 gm BAG 2 GM/50 ML BAG IVPB ONE (22:01)
[2020-05-24] MEDS ORDERED: Albuterol/Ipratropium NEB.SOL (2.5/0.5 MG) 3 ML NEB.SOLN INH SCH (23:00)
[2020-05-24] MEDS ORDERED: Albuterol HFA INHALER 8 gm MDI INH SCH (23:00)
[2020-05-24] MEDS: Heparin 5000 UNITS/ML 1 mL VIAL SUBCUT SCH (23:51)
[2020-05-24] MEDS: methylPREDNISolone SOD 40 mg/ml 1 ml VIAL IV SCH (23:52)
[2020-05-24] MEDS: Albuterol/Ipratropium NEB.SOL (2.5/0.5 MG) 3 ML NEB.SOLN INH SCH (23:52)
[2020-05-25] MEDS ORDERED: Azithromycin 500 mg/250 ml NS 500 MG/250 ML BAG IVPB SCH
[2020-05-25] MEDS: Albuterol/Ipratropium NEB.SOL (2.5/0.5 MG) 3 ML NEB.SOLN INH SCH ×2 (03:25→07:22)
[2020-05-25 04:56] LABS: ABS Lymphocytes 0.6 10^3/ul (1.0-4.8); ABS Monocytes 0.1 10^3/ul (0-0.8); ABS Neutrophils 4.2 10^3/ul (1.5-7.7); Eosinophil % 0.4 %; Hematocrit 35 % (42-52); Lymphocyte % 11.4 %; Mean Corpuscular HGB Conc 32 g/dL (31-36); Mean Corpuscular Hemoglobin 26 pg (27-31); Mean Corpuscular Volume 82 fL (80-94); Mean Platelet Volume 8.8 fL (7.4-10.4); Nucleated Red Blood Cells % 0.1; Platelet Count 205 10^3/uL (150-450); Red Blood Count 4.21 10^6 /uL (4.18-5.48); Red Cell Distribution Width 15 % (10-15); White Blood Count 4.9 10^3/uL (3.5-10.8)
[2020-05-25 05:13] LABS: BUN/Creatinine Ratio 12.8 (8-20); Calcium 8.9 mg/dL (8.6-10.3); EGFR African American 41.3 (>60); EGFR Non-African American 34.1 (>60)
[2020-05-25 05:16] LABS: Potassium 5.6 mmol/L (3.5-5.0)
[2020-05-25] MEDS: methylPREDNISolone SOD 40 mg/ml 1 ml VIAL IV SCH ×3 (05:54→20:24)
[2020-05-25] MEDS: Heparin 5000 UNITS/ML 1 mL VIAL SUBCUT SCH ×3 (05:54→20:27)
[2020-05-25] MEDS ORDERED: Dextrose 50% Syringe 50 ml 25 GM/50 ML SYRINGE IV PUSH PRN (06:38)
[2020-05-25] MEDS ORDERED: Albuterol HFA INHALER 8 gm MDI INH PRN (06:57)
[2020-05-25] MEDS: Insulin GLARGINE 100 un/ml 10 ml VIAL SUBCUT SCH (08:40)
[2020-05-25] MEDS: Timolol 0.5% OPTH.SOL BTL BOTH EYES SCH (08:42)
[2020-05-25] MEDS ORDERED: Albuterol/Ipratropium NEB.SOL (2.5/0.5 MG) 3 ML NEB.SOLN INH PRN (08:55)
[2020-05-25] MEDS: Mometasone/Formoter 200/5 MDI INH SCH ×2 (12:14→19:59)
[2020-05-25 17:10] LABS: BUN/Creatinine Ratio 15.3 (8-20); Blood Urea Nitrogen 31 mg/dL (6-24); CO2 Carbon Dioxide 23 mmol/L (22-32); Calcium 9.1 mg/dL (8.6-10.3); Chloride 99 mmol/L (101-111); EGFR African American 37.8 (>60); EGFR Non-African American 31.2 (>60); Glucose 452 mg/dL (70-100); Sodium 130 mmol/L (135-145)
[2020-05-25 17:14] LABS: Anion Gap 8 mmol/L (2-11)
[2020-05-25] MEDS: Sodium Polystyrene ORAL.SUSP 15 GM/60 ML BTL PO SCH ×2 (18:14→23:22)
[2020-05-25] MEDS: Azithromycin 500 mg/250 ml NS 500 MG/250 ML BAG IVPB SCH (20:43)
[2020-05-25] MEDS: cefTRIAXone 1 gm/50 mL NS BAG 1 GM/50 ML BAG IVPB SCH (22:33)
[2020-05-26] MEDS: Heparin 5000 UNITS/ML 1 mL VIAL SUBCUT SCH ×2 (05:39→12:17)
[2020-05-26] MEDS: methylPREDNISolone SOD 40 mg/ml 1 ml VIAL IV SCH (05:39)
[2020-05-26] MEDS: Sodium Polystyrene ORAL.SUSP 15 GM/60 ML BTL PO SCH ×4 (05:40→23:12)
[2020-05-26 07:04] LABS: ABS Lymphocytes 0.9 10^3/ul (1.0-4.8); ABS Monocytes 0.4 10^3/ul (0-0.8); ABS Neutrophils 8.9 10^3/ul (1.5-7.7); Hematocrit 32 % (42-52); Hemoglobin 10.8 g/dL (14.0-18.0); Lymphocyte % 8.8 %; Mean Corpuscular HGB Conc 34 g/dL (31-36); Mean Corpuscular Hemoglobin 27 pg (27-31); Mean Corpuscular Volume 80 fL (80-94); Platelet Count 222 10^3/uL (150-450); Red Blood Count 4.01 10^6 /uL (4.18-5.48); Red Cell Distribution Width 15 % (10-15); White Blood Count 10.1 10^3/uL (3.5-10.8)
[2020-05-26 07:20] LABS: Albumin 3.6 g/dL (3.2-5.2); Albumin/Globulin Ratio 1.2 (1-3); BUN/Creatinine Ratio 16.3 (8-20); Calcium 9.4 mg/dL (8.6-10.3); EGFR African American 42.3 (>60); Magnesium 1.9 mg/dL (1.9-2.7); Potassium 4.8 mmol/L (3.5-5.0); Total Bilirubin 0.3 mg/dL (0.2-1.0); Total Protein 6.6 g/dL (6.4-8.9)
[2020-05-26] MEDS: Mometasone/Formoter 200/5 MDI INH SCH ×2 (07:34→20:15)
[2020-05-26] MEDS: Timolol 0.5% OPTH.SOL BTL BOTH EYES SCH (08:19)
[2020-05-26] MEDS: Insulin GLARGINE 100 un/ml 10 ml VIAL SUBCUT SCH (08:30)
[2020-05-26] MEDS ORDERED: Enoxaparin 40 MG/0.4 ML SYR SUBCUT SCH ×2 (21:00)
[2020-05-26] MEDS: Azithromycin 500 mg/250 ml NS 500 MG/250 ML BAG IVPB SCH (21:29)
[2020-05-26] MEDS: cefTRIAXone 1 gm/50 mL NS BAG 1 GM/50 ML BAG IVPB SCH (23:41)
[2020-05-27] MEDS: Sodium Polystyrene ORAL.SUSP 15 GM/60 ML BTL PO SCH (06:03)
[2020-05-27 06:34] LABS: ABS Basophils 0.1 10^3/ul (0-0.2); ABS Lymphocytes 1.5 10^3/ul (1.0-4.8); ABS Monocytes 0.8 10^3/ul (0-0.8); ABS Neutrophils 8.2 10^3/ul (1.5-7.7); Hematocrit 31 % (42-52); Hemoglobin 10.4 g/dL (14.0-18.0); Lymphocyte % 14.1 %; Mean Corpuscular HGB Conc 34 g/dL (31-36); Mean Corpuscular Hemoglobin 27 pg (27-31); Mean Corpuscular Volume 80 fL (80-94); Mean Platelet Volume 8.7 fL (7.4-10.4); Platelet Count 227 10^3/uL (150-450); Red Blood Count 3.84 10^6 /uL (4.18-5.48); Red Cell Distribution Width 15 % (10-15); White Blood Count 10.5 10^3/uL (3.5-10.8)
[2020-05-27 06:41] LABS: INR 1.03 (0.82-1.09)
[2020-05-27 07:03] LABS: Anion Gap 6 mmol/L (2-11); Blood Urea Nitrogen 29 mg/dL (6-24); CO2 Carbon Dioxide 31 mmol/L (22-32); Calcium 8.7 mg/dL (8.6-10.3); Chloride 103 mmol/L (101-111); EGFR African American 48.7 (>60); EGFR Non-African American 40.2 (>60); Glucose 126 mg/dL (70-100); Magnesium 1.7 mg/dL (1.9-2.7); Potassium 3.3 mmol/L (3.5-5.0); Sodium 140 mmol/L (135-145)
[2020-05-27 07:14] LABS: Troponin I 0.06 ng/mL (<0.03)
[2020-05-27] MEDS: Mometasone/Formoter 200/5 MDI INH SCH ×2 (07:27→20:19)
[2020-05-27] MEDS ORDERED: Magnesium Sulfate 2 gm BAG 2 GM/50 ML BAG IVPB ONE (07:51)
[2020-05-27] MEDS ORDERED: Potassium Chlor 20 meq TAB.ER PO ONE (07:52)
[2020-05-27] MEDS: Timolol 0.5% OPTH.SOL BTL BOTH EYES SCH (09:06)
[2020-05-27] MEDS: Insulin GLARGINE 100 un/ml 10 ml VIAL SUBCUT SCH (09:07)
[2020-05-27] MEDS ORDERED: Remdesivir 100 mg Vial 200 MG in NS 0.9% 250 ml 210 ML IV ONE (13:00)
[2020-05-27 13:47] LABS: Albumin 3.8 g/dL (3.2-5.2); Albumin/Globulin Ratio 1.4 (1-3); Calcium 9.1 mg/dL (8.6-10.3); EGFR African American 50.8 (>60); Globulin 2.8 g/dL (2-4); Potassium 3.7 mmol/L (3.5-5.0); Total Bilirubin 0.3 mg/dL (0.2-1.0); Total Protein 6.6 g/dL (6.4-8.9)
[2020-05-27] MEDS: Enoxaparin 40 MG/0.4 ML SYR SUBCUT SCH (20:41)
[2020-05-27 21:27] LABS: Glucose Confirmatory 422 mg/dL (70-100)
[2020-05-28 07:51] LABS: ABS Lymphocytes 1.1 10^3/ul (1.0-4.8); ABS Monocytes 0.7 10^3/ul (0-0.8); ABS Neutrophils 6.8 10^3/ul (1.5-7.7); Hematocrit 31 % (42-52); Hemoglobin 10.5 g/dL (14.0-18.0); Lymphocyte % 12.2 %; Mean Corpuscular HGB Conc 34 g/dL (31-36); Mean Corpuscular Hemoglobin 27 pg (27-31); Mean Corpuscular Volume 80 fL (80-94); Mean Platelet Volume 9.2 fL (7.4-10.4); Platelet Count 211 10^3/uL (150-450); Red Cell Distribution Width 15 % (10-15); White Blood Count 8.6 10^3/uL (3.5-10.8)
[2020-05-28] MEDS: Mometasone/Formoter 200/5 MDI INH SCH (08:09)
[2020-05-28 08:17] LABS: Albumin 3.4 g/dL (3.2-5.2); Albumin/Globulin Ratio 1.2 (1-3); Calcium 8.9 mg/dL (8.6-10.3); EGFR African American 50.8 (>60); Globulin 2.8 g/dL (2-4); Potassium 3.4 mmol/L (3.5-5.0); Total Bilirubin 0.3 mg/dL (0.2-1.0); Total Protein 6.2 g/dL (6.4-8.9)
[2020-05-28] MEDS ORDERED: Remdesivir 100 mg Vial 100 MG in NS 0.9% 250 ml 230 ML IV SCH (09:00)
[2020-05-28] MEDS: Insulin GLARGINE 100 un/ml 10 ml VIAL SUBCUT SCH (09:00)
[2020-05-28] MEDS: Enoxaparin 40 MG/0.4 ML SYR SUBCUT SCH (09:02)
[2020-05-28] MEDS: Timolol 0.5% OPTH.SOL BTL BOTH EYES SCH (09:05)
[2020-05-28 10:21] VITALS: BP 143/69
== END 2020-05-28 15:00 | disposition home or self-care (01) | DRG 177 ==
LOC: ED 12:11 → MEDTELE 23:39 → MED 05-25 17:13
PROVIDERS: ADMIT Internal Medicine; ATTEND Pediatrics